=== PATIENT | male | born 1980 | race Hispanic/Latino ===

== ENCOUNTER 2016-11-20 21:26 | Emergency (ER) | payer MEDICAID ==
[2016-11-20 22:11] VITALS: BMI 43.2
[2016-11-20] MEDS ORDERED: Morphine 4 mg/ml ISec IVP STA ×2 (22:40→23:46)
[2016-11-20] MEDS ORDERED: Sodium Chloride 0.9% 1,000 ML IV SCH (22:45)
--- NOTE | 2016-11-20 22:49 | ED PDOC ---
Arrival/HPI - General Chief Complaint: Abdominal Pain Time Seen by Provider: 11/20/16 22:20 Historian: Patient - History of Present Illness Narrative History of Present Illness (Text): 11/20/16 22:47 Bill Doyle is a 36 year old male, with a history of sigmoidectomy in January 2016 for recurrent diverticulitis, presents to the emergency department complaining of abdominal pain and growing ventral hernia for past 2 weeks. States he came back from [place] yesterday. States that pain is worsened while lifting heavy objects. He was admitted to [facility] August 2016 for similar symptoms and was advised to followup with outpatient. States he could not be evaluated by due to insurance coverage issues. Denies any chest pain, shortness of breath, nausea, vomiting, diarrhea, constipation, melena, urinary symptoms or any other complaints at this time. Time/Duration: > week (2 weeks ) Symptom Onset: Gradual Symptom Course: Unchanged Severity Level: Mild, Moderate Past Medical History - Provider Review Nursing Documentation Reviewed: Yes - Infectious Disease Hx of Infectious Diseases: None - Tetanus Immunization Tetanus Immunization: Unknown - Cardiac Hx Cardiac Disorders: No - Pulmonary Hx Respiratory Disorders: No - Neurological Hx Neurological Disorder: No - HEENT Hx HEENT Disorder: No - Renal Hx Renal Disorder: No - Endocrine/Metabolic Hx Endocrine Disorders: No - Hematological/Oncological Hx Blood Disorders: No - Integumentary Hx Dermatological Disorder: No (TATTOOS) - Musculoskeletal/Rheumatological Hx Musculoskeletal Disorders: No Hx Falls: No - Gastrointestinal Hx Gastrointestinal Disorders: Yes Hx Diverticulitis: Yes Other/Comment: incisional abscess, sigmoid colon resection january 2016 - Genitourinary/Gynecological Hx Genitourinary Disorders: No - Psychiatric Hx Psychophysiologic Disorder: No Hx Substance Use: No (DENIES) - Past Surgical History Past Surgical History: No Previous - Surgical History Other/Comment: Sigmoid colon resection on 02/24/2016. incisional abscess multiple complications - Anesthesia Hx Anesthesia: Yes Hx Anesthesia Reactions: No Hx Malignant Hyperthermia: No - Suicidal Assessment Feels Threatened In Home Enviroment: No Family/Social History - Physician Review Nursing Documentation Reviewed: Yes Family/Social History: No Known Family HX Smoking Status: Heavy Smoker > 10 Cigarettes Daily Hx Alcohol Use: No (Socially) Hx Substance Use: No (DENIES) Hx Substance Use Treatment: Yes Allergies/Home Meds Allergies/Adverse Reactions: Allergies erythromycin base Allergy (Verified 09/07/16 20:41) RASH Penicillins Allergy (Verified 09/07/16 20:41) RASH venom-honey bee [bee venom (honey bee)] Allergy (Verified 09/07/16 20:41) ANAPHYLAXIS Review of Systems - Physician Review All systems were reviewed & negative as marked: Yes - Review of Systems Constitutional: Normal. absent: Fatigue, Fevers Respiratory: Normal. absent: SOB, Cough Cardiovascular: Normal. absent: Chest Pain Gastrointestinal: Abdominal Pain, Other (ventral hernia ) Genitourinary Male: Normal. absent: Dysuria, Frequency Neurological: Normal. absent: Headache, Dizziness Psychiatric: Normal Physical Exam Vital Signs Reviewed: Yes Vital Signs Temp Pulse Resp BP Pulse Ox 11/21/16 02:00 97.8 F 74 16 129/80 96 11/21/16 00:15 98.8 F 84 18 138/88 95 11/20/16 21:27 97.6 F 107 H 18 155/89 H 95 Temperature: Afebrile Blood Pressure: Normal Pulse: Tachycardic Respiratory Rate: Normal Appearance: Positive for: Well-Appearing, Non-Toxic, Comfortable Pain Distress: None Mental Status: Positive for: Alert and Oriented X 3 - Systems Exam Head: Present: Atraumatic, Normocephalic Pupils: Present: PERRL Conjunctiva: Present: Normal Respiratory/Chest: Present: Clear to Auscultation, Good Air Exchange. No: Respiratory Distress, Accessory Muscle Use Cardiovascular: Present: Regular Rate and Rhythm, Normal S1, S2. No: Murmurs Abdomen: Present: Normal Bowel Sounds, Hernias (large soft irreducible ventral hernia ). No: Tenderness, Distention, Peritoneal Signs Upper Extremity: Present: Normal Inspection. No: Cyanosis, Edema Lower Extremity: Present: Normal Inspection. No: Edema Neurological: Present: GCS=15, CN II-XII Intact, Speech Normal, Motor Func Grossly Intact, Normal Sensory Function Skin: Present: Warm, Dry, Normal Color. No: Rashes Psychiatric: Present: Alert, Oriented x 3, Normal Insight, Normal Concentration Medical Decision Making ED Course and Treatment: 11/21/16 00:46 Case discussed with hospitalist. Surgery resident evaluated the pt in the ED. chepe gill attending. 11/21/16 01:53 CT Abdomen and Pelvis results reviewed: FINDINGS: Lower thorax: The bilateral lung bases are clear. ABDOMEN: Liver: No acute findings. Gallbladder and bile ducts: The gallbladder is only minimally distended, without calcified stones. No significant intra- or extrahepatic biliary ductal dilation. Pancreas: A 9 mm focus of decreased attenuation is identified within the body of the pancreas, unchanged dating back to 03/27/2016. The pancreas otherwise enhances homogeneously. No ductal dilation. No discrete mass. Spleen: No acute findings. Adrenals: No acute findings. Kidneys and ureters: No acute findings. No hydronephrosis or renal calculi. No discrete solid mass. PELVIS: Bladder: The bladder is decompressed, limiting its evaluation. Reproductive: No acute findings. Appendix: The appendix is not definitively visualized, however no pericecal inflammatory changes identified to suggest the presence of acute appendicitis. ABDOMEN and PELVIS: Stomach and bowel: No obstruction. Mural thickening within multiple loops of small bowel within the left mid to upper abdomen, without surrounding inflammatory change to confirm an enteritis. Postoperative change within the sigmoid colon. Nonobstructing ventral hernia persists. Peritoneum: No significant fluid collection. No free air. Lymph nodes: No pathologically enlarged lymph nodes. Vasculature: Unremarkable. Bones: No acute fracture. IMPRESSION: Mural thickening within multiple loops of small bowel within the left mid to upper abdomen, without surrounding inflammation to confirm an enteritis. Additional nonacute findings, as detailed above. 11/21/16 02:[address] evaluated the patient. Patient states that pain has improved post treatment and wishes to be discharged home. States he will follow up with Dr. Drake outpatient within couple of days. Advised to present to emergency department for worsening symptoms. - Lab Interpretations Lab Results: 11/20/16 23:30 11/20/16 23:30 Lab Results 11/20/16 23:30: Sodium 141, Chloride 102, Potassium 4.0, Carbon Dioxide 29, Anion Gap 14, BUN 17, Creatinine 1.0, Est GFR ( Amer) > 60, Est GFR (Non- Af Amer) > 60, Random Glucose 93, Calcium 9.2, Total Bilirubin 0.5, AST 39, ALT 64 H, Alkaline Phosphatase 90, Total Protein 7.9, Albumin 4.1, Globulin 3.7, Albumin/Globulin Ratio 1.1 11/20/16 23:30: pO2 89 H, VBG pH 7.39, VBG pCO2 51.0, VBG HCO3 30.9 H, VBG Total CO2 32.5 H, VBG O2 Sat (Calc) 98.6 H, VBG Base Excess 4.7 H, VBG Potassium 3.9, Sodium 139.0, Chloride 109.0 H, Glucose 96, Lactate 1.1, FiO2 21.0, Venous Blood Potassium 3.9 11/20/16 23:30: WBC 7.4, RBC 4.61, Hgb 13.6 L, Hct 41.0 L, MCV 88.9, MCH 29.5, MCHC 33.2, RDW 13.0, Plt Count 271, MPV 9.0, Gran % 58.7, Lymph % (Auto) 31.6, Cottle % (Auto) 8.7 H, Eos % (Auto) 0.9 L, Baso % (Auto) 0.1, Gran # 4.33, Lymph # 2.3, Cottle # 0.6, Eos # 0.1, Baso # 0.01 - RAD Interpretation Radiology Orders: 11/20/16 23:13 ABD PELVIS PO & IV CONTRAST [CT] Stat - Medication Orders Current Medication Orders: Discontinued Medications Sodium Chloride (Sodium Chloride 0.9%) 1,000 mls @ 150 mls/hr IV .[facility]6H40M [facility] Last Admin: 11/20/16 23:45 Dose: 150 mls/hr Iohexol (Omnipaque 240 (50 Ml)) Confirm Administered Dose 50 ml .ROUTE .STK-MED ONE Stop: 11/20/16 23:35 Last Admin: 11/20/16 23:55 Dose: 50 ml Iohexol (Omnipaque 350 100 Ml) Confirm Administered Dose 350 mg .ROUTE .STK-MED ONE Stop: 11/21/16 00:46 Ketorolac Tromethamine (Toradol) 10 mg IVP STAT STA Stop: 11/21/16 00:24 Last Admin: 11/21/16 01:00 Dose: 10 mg Morphine Sulfate (Morphine) 8 mg IVP STAT STA Stop: 11/20/16 22:41 Last Admin: 11/20/16 23:20 Dose: 8 mg Re-Assess: HANNY Pain Assessment Document 11/21/16 00:20 KKL (Rec: 11/21/16 01:57 KKL [id number]) Pain Reassessment Is this a pain reassessment? Yes Sleep Is patient sleeping during reassessment? No Presence of Pain Presence of Pain Yes Pain Scale Used Pain Scale Used Numeric Location Pain Location Body Site Abdomen Morphine Sulfate (Morphine) 4 mg IVP STAT STA Stop: 11/20/16 23:47 Last Admin: 11/21/16 00:05 Dose: 4 mg Re-Assess: HANNY Pain Assessment Document 11/21/16 01:05 KKL (Rec: 11/21/16 01:58 KKL [id number]) Pain Reassessment Is this a pain reassessment? Yes Sleep Is patient sleeping during reassessment? No Presence of Pain Presence of Pain Yes Pain Scale Used Pain Scale Used Numeric Location Pain Location Body Site Abdomen Description Description Sharp Intensity of Pain at present 7 Acceptable Level of Pain 4 Pain Behavior Restlessness Morphine Sulfate (Morphine) 4 mg IVP STAT STA Stop: 11/21/16 02:03 Last Admin: 11/21/16 02:10 Dose: 4 mg - Scribe Statement The provider has reviewed the documentation as recorded by the Barb Ma Provider Attestation: All medical record entries made by the Barb were at my direction and personally dictated by me. I have reviewed the chart and agree that the record accurately reflects my personal performance of the history, physical exam, medical decision making, and the department course for this patient. I have also personally directed, reviewed, and agree with the discharge instructions and disposition. Disposition/Present on Arrival - Present on Arrival Any Indicators Present on Arrival: No History of DVT/PE: No History of Uncontrolled Diabetes: No Urinary Catheter: No History of Decub. Ulcer: No History Surgical Site Infection Following: None - Disposition Have Diagnosis and Disposition been Completed?: Yes Diagnosis: Ventral hernia Disposition: HOME/ ROUTINE Disposition Time: 02:06 Condition: STABLE Discharge Instructions (ExitCare): Ventral Hernia (ED) Additional Instructions: Please follow up with the surgeon: call tomorrow. Return to the ER for any worsening symptoms, fever, vomiting, severe pain, or for any other concerns. Referrals: [facility] Julian Saleem, [Primary Care Provider] - Follow up with primary Octavio Drake MD [Staff Provider] - Follow up with primary
[2016-11-20] MEDS ORDERED: Iohexol 240 (50 ml) ONE (23:34)
[2016-11-20 23:42] LABS: ADD MANUAL DIFF? NO
[2016-11-20 23:56] LABS: VENOUS BLOOD GAS BASE EXCESS 4.7 mmol/L (0.0-2.0); VENOUS BLOOD PH 7.39 (7.32-7.43)
[2016-11-20 23:58] LABS: ALB/GLOB RATIO 1.1 (1.1-1.8); ALKALINE PHOSPHATASE 90 U/L (38-133); ALT/SGPT 64 U/L (7-56); AST/SGOT 39 U/L (15-59); BILIRUBIN,TOTAL 0.5 mg/dL (0.2-1.3); BLOOD UREA NITROGEN 17 mg/dL (7-21); CALCIUM 9.2 mg/dL (8.4-10.5); CARBON DIOXIDE 29 mmol/L (21-33); CHLORIDE 102 mmol/L (98-107); GFR AFRICAN-AMERICAN > 60; GLUCOSE,RANDOM 93 mg/dL (70-110); SODIUM 141 mmol/L (132-148); TOTAL PROTEIN 7.9 g/dL (5.8-8.3)
[2016-11-21 00:24] LABS: BASO # 0.01 K/mm3 (0.0-2.0); BASO % 0.1 % (0.0-3.0); EOS # 0.1 (0.0-0.7); EOS % 0.9 % (1.5-5.0); GRAN # 4.33 (1.4-6.5); GRAN % 58.7 % (50.0-68.0); LYMPH # 2.3 (1.2-3.4); LYMPH % 31.6 % (22.0-35.0); MEAN CELL VOLUME 88.9 fL (80.0-105.0); MEAN CORPUSCULAR HEMOGLOBIN 29.5 pg (25.0-35.0); MEAN CORPUSCULAR HGB CONC 33.2 g/dl (31.0-37.0); MONO # 0.6 (0.1-0.6); MONO % 8.7 % (1.0-6.0); PLATELET COUNT 271 10^3/uL (120.0-450.0); WHITE BLOOD COUNT 7.4 10^3/ul (4.5-11.0)
[2016-11-21] MEDS ORDERED: Iohexol 350 MG/100 ML VIAL ONE (00:45)
--- NOTE | 2016-11-21 01:35 | CT ---
EXAM: CT Abdomen and Pelvis With Intravenous Contrast CLINICAL HISTORY: 36 years old, male; Pain; Abdominal pain; Generalized; Prior surgery; Surgery date: 6+ months; Additional info: Abd pain and ventral hernia TECHNIQUE: Axial computed tomography images of the abdomen and pelvis with intravenous contrast. This CT exam was performed using one or more of the following dose reduction techniques: automated exposure control, adjustment of the mA and/or kV according to patient size, and/or use of iterative reconstruction technique. Coronal and sagittal reformatted images were created and reviewed. CONTRAST: 96 mL of OMNI 350 administered intravenously. COMPARISON: CT - ABD PELVIS IV CONTRAST ONLY 09/07/2016 10:33:36 PM FINDINGS: Lower thorax: The bilateral lung bases are clear. ABDOMEN: Liver: No acute findings. Gallbladder and bile ducts: The gallbladder is only minimally distended, without calcified stones. No significant intra- or extrahepatic biliary ductal dilation. Pancreas: A 9 mm focus of decreased attenuation is identified within the body of the pancreas, unchanged dating back to 03/27/2016. The pancreas otherwise enhances homogeneously. No ductal dilation. No discrete mass. Spleen: No acute findings. Adrenals: No acute findings. Kidneys and ureters: No acute findings. No hydronephrosis or renal calculi. No discrete solid mass. PELVIS: Bladder: The bladder is decompressed, limiting its evaluation. Reproductive: No acute findings. Appendix: The appendix is not definitively visualized, however no pericecal inflammatory changes identified to suggest the presence of acute appendicitis. ABDOMEN and PELVIS: Stomach and bowel: No obstruction. Mural thickening within multiple loops of small bowel within the left mid to upper abdomen, without surrounding inflammatory change to confirm an enteritis. Postoperative change within the sigmoid colon. Nonobstructing ventral hernia persists. Peritoneum: No significant fluid collection. No free air. Lymph nodes: No pathologically enlarged lymph nodes. Vasculature: Unremarkable. Bones: No acute fracture. IMPRESSION: Mural thickening within multiple loops of small bowel within the left mid to upper abdomen, without surrounding inflammation to confirm an enteritis. Additional nonacute findings, as detailed above.
[2016-11-21] MEDS ORDERED: Morphine 4 mg/ml ISec IVP STA (02:02)
[2016-11-21 02:25] VITALS: BP 129/80; PULSE 74; RESP 16; TEMP 97.8; O2SAT 96
== END 2016-11-21 02:27 | disposition home or self-care (01) ==
LOC: ED 21:26 → UNDOADMOB 11-21 00:45 → ERH 11-21 00:45 → ED 11-21 02:27
DX: K43.9 Ventral hernia without obstruction or gangrene (principal); Z88.0 Allergy status to penicillin; F17.210 Nicotine dependence, cigarettes, uncomplicated
CPT/HCPCS: 74177; 80053; 82803; 85025; 96374; 96375; 96376; 99284; J1885; J2270; J7040; Q9966; Q9967

== ENCOUNTER 2016-12-03 20:59 | Emergency (ER) | payer MEDICAID ==
[2016-12-03 21:00] VITALS: BMI 43.2
[2016-12-03 21:15] VITALS: RESP 18; TEMP 98.6
--- NOTE | 2016-12-03 21:35 | ED PDOC ---
Arrival/HPI - General Chief Complaint: Abdominal Pain Time Seen by Provider: 12/03/16 21:26 Historian: Patient - History of Present Illness Narrative History of Present Illness (Text): 12/03/16 21:34 Bill Doyle is a 35 year old male, whose past medical history includes recurrent diverticulitis, s/p sigmoid colon resection with anastomosis, diabetes , hyperlipidemia, and appendectomy, who presents to the ED complaining of a worsening ventral hernia for the past few weeks. Patient also complaining of associated pain to the area. Patient denies any fever, chills, chest pain, shortness of breath, nausea, vomiting, diarrhea, urinary symptoms, back pain, neck pain, headache, dizziness, or any other complaints. Time/Duration: Other (Few weeks) Symptom Onset: Gradual Symptom Course: Unchanged Activities at Onset: Light Context: Home Past Medical History - Provider Review Nursing Documentation Reviewed: Yes - Infectious Disease Hx of Infectious Diseases: None - Tetanus Immunization Tetanus Immunization: Unknown - Cardiac Hx Cardiac Disorders: No - Pulmonary Hx Respiratory Disorders: No - Neurological Hx Neurological Disorder: No - HEENT Hx HEENT Disorder: No - Renal Hx Renal Disorder: No - Endocrine/Metabolic Hx Endocrine Disorders: No - Hematological/Oncological Hx Blood Disorders: No - Integumentary Hx Dermatological Disorder: No - Musculoskeletal/Rheumatological Hx Musculoskeletal Disorders: No Hx Falls: No - Gastrointestinal Hx Gastrointestinal Disorders: Yes Hx Diverticulitis: Yes Other/Comment: incisional abscess, sigmoid colon resection january 2016 - Genitourinary/Gynecological Hx Genitourinary Disorders: No - Psychiatric Hx Psychophysiologic Disorder: No Hx Substance Use: No (DENIES) - Past Surgical History Past Surgical History: No Previous - Surgical History Other/Comment: Sigmoid colon resection on 02/24/2016. incisional abscess multiple complications - Anesthesia Hx Anesthesia: Yes - Suicidal Assessment Feels Threatened In Home Enviroment: No Family/Social History - Physician Review Nursing Documentation Reviewed: Yes Family/Social History: No Known Family HX Smoking Status: Heavy Smoker > 10 Cigarettes Daily Hx Alcohol Use: No (Socially) Hx Substance Use: No (DENIES) Hx Substance Use Treatment: Yes Allergies/Home Meds Allergies/Adverse Reactions: Allergies erythromycin base Allergy (Verified 12/05/16 12:12) RASH Penicillins Allergy (Verified 12/05/16 12:12) RASH venom-honey bee [bee venom (honey bee)] Allergy (Verified 12/05/16 12:12) ANAPHYLAXIS Home Medications: Home Meds Medication Instructions Recorded Confirmed No Known Home Med 12/03/16 12/05/16 Review of Systems - Physician Review All systems were reviewed & negative as marked: Yes - Review of Systems Constitutional: Normal. absent: Fevers Eyes: Normal ENT: Normal Respiratory: Normal. absent: SOB, Cough Cardiovascular: Normal. absent: Chest Pain Gastrointestinal: Abdominal Pain, Nausea, Vomiting, Other (+worsening hernia) Genitourinary Male: Normal. absent: Dysuria, Frequency, Hematuria, Urinary Output Changes Musculoskeletal: Normal. absent: Back Pain, Neck Pain Skin: Normal. absent: Rash Neurological: Normal. absent: Headache, Dizziness Endocrine: Normal Hemo/Lymphatic: Normal Psychiatric: Normal Physical Exam Vital Signs Reviewed: Yes Vital Signs Temp Pulse Resp BP Pulse Ox 12/04/16 02:40 98 H 18 116/76 95 12/03/16 21:13 98.6 F 104 H 18 125/76 96 Temperature: Afebrile Blood Pressure: Normal Pulse: Regular Respiratory Rate: Normal Appearance: Positive for: Well-Appearing, Non-Toxic, Comfortable Pain Distress: None Mental Status: Positive for: Alert and Oriented X 3 - Systems Exam Head: Present: Atraumatic, Normocephalic Pupils: Present: PERRL Extroacular Muscles: Present: EOMI Conjunctiva: Present: Normal Mouth: Present: Moist Mucous Membranes Neck: Present: Normal Range of Motion Respiratory/Chest: Present: Clear to Auscultation, Good Air Exchange. No: Respiratory Distress, Accessory Muscle Use Cardiovascular: Present: Regular Rate and Rhythm, Normal S1, S2. No: Murmurs Abdomen: Present: Normal Bowel Sounds, Hernias (Large ventral hernia). No: Tenderness, Distention, Peritoneal Signs Back: Present: Normal Inspection Upper Extremity: Present: Normal Inspection. No: Cyanosis, Edema Lower Extremity: Present: Normal Inspection. No: Edema Neurological: Present: GCS=15, CN II-XII Intact, Speech Normal Skin: Present: Warm, Dry, Normal Color. No: Rashes Psychiatric: Present: Alert, Oriented x 3, Normal Insight, Normal Concentration Medical Decision Making ED Course and Treatment: 12/03/16 21:34 Impression: 36 year old male complaining of worsening ventral hernia with associated pain. Plan: -- CT Abdomen and Pelvis w/o contrast -- Labs, lipase -- Urinalysis -- IV fluids -- Zofran -- Dilaudid -- Reassess and disposition Prior Visits: Notes and results from previous visits were reviewed. On 11/20/2016, pt was seen in the Emergency department for abdominal pain and growing ventral hernia. Pt was d/c home. Progress Notes: 12/03/16 23:50 Reviewed radiology, CT Abdomen and Pelvis shows: Diastases recti. Fat and unobstructed bowel loops protrude through the defect in the abdominal wall. 12/04/16 00:07 Case discussed with surgical supply assistant head correction officer, who is aware and agrees with plan. 12/04/16 01:[address] Sherlyn Lara, who is aware and agrees with plan. States she will be unavailable tomorrow and recommends pt return to the Emergency department for evaluation on Thursday11/05/16. Discussed results and plan with pt, who is aware and verbalizes understanding. - Lab Interpretations Lab Results: 12/03/16 21:46 12/03/16 21:46 Lab Results 12/03/16 23:56: Urine Color Yellow, Urine Appearance Sl cloudy, Urine pH 6.0, Ur Specific [place] >= 1.030, Urine Protein 30 H, Urine Glucose (UA) Negative, Urine Ketones Negative, Urine Blood Negative, Urine Nitrate Negative, Urine Bilirubin Small H, Urine Urobilinogen 1.0 H, Ur Leukocyte Esterase Negative, Urine RBC 0 - 2, Urine WBC 2 - 5, Ur Epithelial Cells 0 - 2, Calcium Oxalate Crystal Rare, Urine Bacteria Rare 12/03/16 21:46: Sodium 139, Potassium 4.0, Chloride 100, Carbon Dioxide 30, Anion Gap 13, BUN 15, Creatinine 0.9, Est GFR ( Amer) > 60, Est GFR (Non- Af Amer) > 60, Random Glucose 88, Calcium 9.2, Total Bilirubin 0.8, AST 47, ALT 87 H, Alkaline Phosphatase 76, Total Protein 8.6 H, Albumin 4.5, Globulin 4.1, Albumin/Globulin Ratio 1.1, Lipase 45 12/03/16 21:46: PT 10.6, INR 0.98, APTT 27.2 12/03/16 21:46: WBC 7.4, RBC 4.90, Hgb 14.8, Hct 44.1, MCV 90.0, MCH 30.2, MCHC 33.6, RDW 13.2, Plt Count 301, MPV 9.1, Gran % 64.5, Lymph % (Auto) 26.1, Simpson % (Auto) 8.3 H, Eos % (Auto) 1.0 L, Baso % (Auto) 0.1, Gran # 4.74, Lymph # 1.9 , Simpson # 0.6, Eos # 0.1, Baso # 0.01 I have reviewed the lab results: Yes - RAD Interpretation Narrative RAD Interpretations (Text): CT Abdomen and Pelvis shows: Lower thorax: No acute findings. ABDOMEN: Liver: Fatty infiltration of the liver. Gallbladder and bile ducts: Unremarkable. No calcified stones. No ductal dilation. Pancreas: Unremarkable. No ductal dilation. Spleen: Unremarkable. No splenomegaly. Adrenals: Unremarkable. No mass. Kidneys and ureters: Left renal cysts. No obstructing stones. No hydronephrosis. Stomach and bowel: Diastases recti. Fat and unobstructed bowel loops protrude through the defect in the abdominal wall. Diverticulosis in the right colon. Postop changes in the sigmoid colon. Appendix: No findings to suggest acute appendicitis. PELVIS: Bladder: Unremarkable. No stones. Reproductive: Unremarkable as visualized. ABDOMEN and PELVIS: Intraperitoneal space: Unremarkable. No free air. No significant fluid collection. Bones/joints: No acute fracture. No dislocation. Soft tissues: See above. Vasculature: Unremarkable. No abdominal aortic aneurysm. Lymph nodes: Unremarkable. No enlarged lymph nodes. IMPRESSION: Diastases recti. Fat and unobstructed bowel loops protrude through the defect in the abdominal wall. Radiology Orders: 12/03/16 21:38 ABD & PELVIS W/O PO OR IV CONT [CT] Stat Plastic Press Molder: Radiologist - Medication Orders Current Medication Orders: Discontinued Medications Hydromorphone HCl (Dilaudid) 2 mg IVP STAT STA Stop: 12/03/16 21:39 Last Admin: 12/03/16 22:03 Dose: 2 mg Hydromorphone HCl (Dilaudid) 2 mg IVP STAT STA Stop: 12/03/16 22:34 Last Admin: 12/03/16 22:47 Dose: 2 mg Hydromorphone HCl (Dilaudid) 2 mg IVP STAT STA Stop: 12/04/16 00:07 Last Admin: 12/04/16 00:20 Dose: 2 mg Hydromorphone HCl (Dilaudid) 2 mg IVP STAT STA Stop: 12/04/16 01:58 Last Admin: 12/04/16 02:33 Dose: 2 mg Sodium Chloride (Sodium Chloride 0.9%) 1,000 mls @ 100 mls/hr IV .Q10H STA Stop: 12/04/16 07:37 Last Admin: 12/03/16 22:03 Dose: 100 mls/hr Ondansetron HCl (Zofran Inj) 4 mg IVP STAT STA Stop: 12/03/16 21:39 Last Admin: 12/03/16 22:02 Dose: 4 mg - Scribe Statement The provider has reviewed the documentation as recorded by the Scribpatience Givens All medical record entries made by the Ramiroibpatience were at my direction and personally dictated by me. I have reviewed the chart and agree that the record accurately reflects my personal performance of the history, physical exam, medical decision making, and the department course for this patient. I have also personally directed, reviewed, and agree with the discharge instructions and disposition. Disposition/Present on Arrival - Present on Arrival Any Indicators Present on Arrival: No History of DVT/PE: No History of Uncontrolled Diabetes: No Urinary Catheter: No History of Decub. Ulcer: No History Surgical Site Infection Following: None - Disposition Have Diagnosis and Disposition been Completed?: Yes Diagnosis: Abdominal hernia Disposition: HOME/ ROUTINE Disposition Time: 01:40 Condition: GOOD Discharge Instructions (ExitCare): Ventral Hernia (ED) Additional Instructions: follow up with dr lara or return to ed
[2016-12-03] MEDS ORDERED: Sodium Chloride 0.9% 1,000 ML IV STA (21:38)
[2016-12-03] MEDS ORDERED: HYDROmorphone 2 mg/ml ISec IVP STA ×2 (21:38→22:33)
[2016-12-03 22:12] LABS: ADD MANUAL DIFF? NO
[2016-12-03 22:20] LABS: BASO # 0.01 K/mm3 (0.0-2.0); BASO % 0.1 % (0.0-3.0); EOS # 0.1 (0.0-0.7); GRAN # 4.74 (1.4-6.5); GRAN % 64.5 % (50.0-68.0); HEMATOCRIT 44.1 % (42.0-52.0); LYMPH # 1.9 (1.2-3.4); LYMPH % 26.1 % (22.0-35.0); MEAN CORPUSCULAR HEMOGLOBIN 30.2 pg (25.0-35.0); MEAN CORPUSCULAR HGB CONC 33.6 g/dl (31.0-37.0); MEAN PLATELET VOLUME 9.1 fl (7.0-11.0); MONO # 0.6 (0.1-0.6); MONO % 8.3 % (1.0-6.0); PLATELET COUNT 301 10^3/uL (120.0-450.0); RED CELL DISTRIBUTION WIDTH 13.2 % (11.5-14.5); WHITE BLOOD COUNT 7.4 10^3/ul (4.5-11.0)
[2016-12-03 22:25] LABS: ALB/GLOB RATIO 1.1 (1.1-1.8); ALKALINE PHOSPHATASE 76 U/L (38-133); ALT/SGPT 87 U/L (7-56); AST/SGOT 47 U/L (15-59); BILIRUBIN,TOTAL 0.8 mg/dL (0.2-1.3); BLOOD UREA NITROGEN 15 mg/dL (7-21); CALCIUM 9.2 mg/dL (8.4-10.5); CARBON DIOXIDE 30 mmol/L (21-33); CHLORIDE 100 mmol/L (98-107); GFR AFRICAN-AMERICAN > 60; GLUCOSE,RANDOM 88 mg/dL (70-110); LIPASE 45 U/L (23-300); SODIUM 139 mmol/L (132-148); TOTAL PROTEIN 8.6 g/dL (5.8-8.3)
[2016-12-03 22:29] LABS: INR 0.98 (0.93-1.08); PARTIAL THROMBOPLASTIN TIME 27.2 Seconds (23.7-30.8)
[2016-12-04] MEDS ORDERED: HYDROmorphone 2 mg/ml ISec IVP STA ×2 (00:06→01:57)
[2016-12-04 00:19] LABS: URINE BILIRUBIN SMALL (NEGATIVE); URINE BLOOD NEGATIVE (NEGATIVE); URINE GLUCOSE (UA) NEGATIVE (NEGATIVE); URINE KETONE NEGATIVE (NEGATIVE); URINE LEUKOCYTE ESTERASE NEGATIVE Leu/uL (NEGATIVE); URINE PROTEIN 30 mg/dL (<30 mg/dL)
[2016-12-04 00:23] LABS: URINE APPEARANCE SL CLOUDY (CLEAR); URINE COLOR YELLOW (YELLOW)
[2016-12-04 00:32] LABS: URINE BACTERIA RARE (NEG); URINE EPITHELIAL CELLS 0 - 2 /hpf (0-5); URINE RBC 0 - 2 /hpf (0-2)
[2016-12-04 00:33] LABS: URINE CALCIUM OXALATE CRYSTALS RARE /hpf
[2016-12-04 02:41] VITALS: BP 116/76; PULSE 98; O2SAT 95
--- NOTE | 2016-12-04 09:01 | CT ---
PROCEDURE: CT Abdomen and Pelvis without intravenous contrast HISTORY: abd pain COMPARISON: 11/21/2016 TECHNIQUE: Without contrast.. Contrast Dose: 0 Radiation dose: Total exam DLP = 2804.55 mGy-cm. This CT exam was performed using one or more of the following dose reduction techniques: Automated exposure control, adjustment of the mA and/or kV according to patient size, and/or use of iterative reconstruction technique. FINDINGS: LOWER THORAX: Unremarkable. LIVER: Normal size and contour. Mildly diminished attenuation diffusely consistent with fatty infiltration. No mass. No biliary dilatation. GALLBLADDER AND BILE DUCTS: Unremarkable. PANCREAS: Significant for 1.2 cm homogeneously fat attenuation mass in the pancreatic body consistent with a small pancreatic lipoma. Unchanged since 02/13/2015. No other pancreatic mass. No pancreatic ductal dilatation or peripancreatic fluid. SPLEEN: Unremarkable. ADRENALS: 1.3 cm left adrenal mass common nonspecific. Unchanged. Likely adrenal adenoma. Unremarkable right adrenal gland. KIDNEYS AND URETERS: Unremarkable. No hydronephrosis. No solid mass. VASCULATURE: Unremarkable. No aortic aneurysm. BOWEL: No bowel obstruction. Postoperative changes of descending and sigmoid colon with sutural anastomoses identified. APPENDIX: Not identified. No secondary findings to suggest acute appendicitis. PERITONEUM: Diastases recti. Small right parasagittal ventral hernia containing mesenteric fat, supraumbilical. LYMPH NODES: Unremarkable. No enlarged lymph nodes. BLADDER: Unremarkable. REPRODUCTIVE: As above. Unremarkable prostate BONES: No acute fracture. OTHER FINDINGS: None. IMPRESSION: No acute abnormality. Diastasis recti and small ventral hernia containing mesenteric fat. No bowel obstruction. Additional minor findings as above. Preliminary interpretation of this examination was reported by [facility] [facility] at 11:34 p.m. on 12/03/2016. There is concurrence of this report with the preliminary interpretation.
== END 2016-12-04 02:40 | disposition home or self-care (01) ==
LOC: ED 20:59
DX: K46.9 Unspecified abdominal hernia without obstruction or gangrene (principal); K57.92 Diverticulitis of intestine, part unspecified, without perforation or abscess without bleeding; E11.9 Type 2 diabetes mellitus without complications; E78.5 Hyperlipidemia, unspecified; Z98.890 Other specified postprocedural states
CPT/HCPCS: 74176; 80053; 81001; 83690; 85025; 85610; 85730; 96374; 96375; 96376; 99283; J1170; J2405; J7040

== ENCOUNTER 2016-12-05 12:01 | Emergency (ER) | payer MEDICAID ==
[2016-12-05 12:12] VITALS: BMI 44.6
[2016-12-05 12:15] VITALS: TEMP 98.1; O2SAT 96
--- NOTE | 2016-12-05 12:59 | ED PDOC ---
Arrival/HPI - General Chief Complaint: Abdominal Pain Time Seen by Provider: 12/05/16 12:29 Historian: Patient - History of Present Illness Narrative History of Present Illness (Text): 12/05/16 12:58 Patient is a 36 year old male presenting to the emergency department with abdominal hernia. Patient states he was seen in the ER and was told to return to the ER today. Patient also reports nausea and vomiting for the past week. He reports last bowel movement last night. States pain is persistent but not worse and no change in character. PMD: Dr. Paul Petersen ([facility]) 12/05/16 20:54 Symptom Onset: Gradual Symptom Course: Unchanged Modifying Factors (Text): None Past Medical History - Provider Review Nursing Documentation Reviewed: Yes - Travel History If Yes, travel location?: [place] - Infectious Disease Hx of Infectious Diseases: None - Tetanus Immunization Tetanus Immunization: Unknown - Cardiac Hx Cardiac Disorders: No - Pulmonary Hx Respiratory Disorders: No - Neurological Hx Neurological Disorder: No - HEENT Hx HEENT Disorder: No - Renal Hx Renal Disorder: No - Endocrine/Metabolic Hx Endocrine Disorders: No - Hematological/Oncological Hx Blood Disorders: No - Integumentary Hx Dermatological Disorder: No - Musculoskeletal/Rheumatological Hx Musculoskeletal Disorders: No Hx Falls: No - Gastrointestinal Hx Gastrointestinal Disorders: Yes Hx Diverticulitis: Yes Other/Comment: incisional abscess, sigmoid colon resection january 2016 - Genitourinary/Gynecological Hx Genitourinary Disorders: No - Psychiatric Hx Psychophysiologic Disorder: No Hx Substance Use: No (DENIES) - Past Surgical History Past Surgical History: No Previous - Surgical History Hx Appendectomy: Yes Other/Comment: Sigmoid colon resection on 02/24/2016. incisional abscess multiple complications - Anesthesia Hx Anesthesia: Yes - Suicidal Assessment Feels Threatened In Home Enviroment: No Family/Social History - Physician Review Nursing Documentation Reviewed: Yes Family/Social History: Unknown Family HX Smoking Status: Heavy Smoker > 10 Cigarettes Daily Hx Alcohol Use: No (Socially) Hx Substance Use: No (DENIES) Hx Substance Use Treatment: Yes Allergies/Home Meds Allergies/Adverse Reactions: Allergies erythromycin base Allergy (Verified 12/05/16 12:12) RASH Penicillins Allergy (Verified 12/05/16 12:12) RASH venom-honey bee [bee venom (honey bee)] Allergy (Verified 12/05/16 12:12) ANAPHYLAXIS Home Medications: Home Meds Medication Instructions Recorded Confirmed No Known Home Med 12/03/16 12/05/16 Review of Systems - Review of Systems Constitutional: absent: Fevers Eyes: absent: Vision Changes ENT: absent: Hearing Changes Respiratory: absent: SOB, Cough Cardiovascular: absent: Chest Pain, Palpitations Gastrointestinal: Nausea, Vomiting, Other (Hernia) Genitourinary Male: absent: Dysuria, Hematuria Musculoskeletal: absent: Back Pain Skin: absent: Rash Neurological: absent: Headache, Dizziness Endocrine: absent: Diaphoresis Psychiatric: absent: Depression Physical Exam - Physical Exam Narrative Physical Exam (Text): Head: Atraumatic. Normocephalic. Eyes: PERRL. EOMI. Conjunctivae are not pale. ENT: Mucous membranes are moist and intact. Oropharynx is clear and symmetric. Neck: Supple. Full ROM. No JVD. No lymphadenopathy. Cardiovascular: Regular rate. Regular rhythm. No murmurs, rubs, or gallops. Pulmonary/Chest: No evidence of respiratory distress. Clear to auscultation bilaterally. No wheezing, rales or rhonchi. Abdominal: Ventral wall hernia which is reducible. Midline abdominal scar. Mild tenderness. No rebound, guarding, or rigidity. No organomegaly. Good bowel sounds. Normoactive bowel sounds. Back: No CVA tenderness. Extremities: No edema. No cyanosis. No clubbing. Full range of motion in all extremities. No calf tenderness. Skin: Skin is warm and dry. No petechiae. No purpura. Neurological: Alert, awake, and oriented to person, place, time, and situation. Normal speech. Motor and sensory exam intact. Psychiatric: Good eye contact. Normal interaction, affect, and behavior. 12/05/16 20:51 Vital Signs Reviewed: Yes Vital Signs Temp Pulse Resp BP Pulse Ox 12/05/16 15:39 97 H 18 138/74 96 12/05/16 12:12 98.1 F 106 H 16 140/76 96 Temperature: Afebrile Blood Pressure: Normal Pulse: Tachycardic Respiratory Rate: Normal Appearance: Positive for: Well-Appearing, Non-Toxic, Uncomfortable Pain Distress: Mild Mental Status: Positive for: Alert and Oriented X 3 Medical Decision Making ED Course and Treatment: Patient denies any nausea or vomiting. He moved his bowels without difficulty today. Patient denies any chest pain or shortness of breath. He states that he was instructed to return to ER today for evaluation by Dr. Lara. Plan: -- Surgical consult -- Reassess and disposition Prior Visits: Notes and results from previous visits were reviewed. Patient last seen in ED on 12/03/16 for abdominal hernia and discharged home. CT Abdomen/Pelvis on 12/03/16 IMPRESSION: Diastases recti. Fat and unobstructed bowel loops protrude through the defect in the abdominal wall. Progress Notes: 12/05/16 12:59 Case discussed with surgical coordinator who states he will evaluate patient. 12/05/16 14:22 vice president of procurement states he spoke with attending Dr. Lara who states to discharge patient and instruct patient to come back to the ER on Thursday to be admitted for surgery. Patient re-examined, hernia is soft and reducible. He has pain on palpation but states it is not worse than what it has been for past several weeks. He is requesting dose of pain medication, IV pain medication ordered. He has a prescription for pain medication from previous visit. Based on no change in pain since last CT, tolerating PO, moving bowels without difficulty, and after evaluation by surgery, will discharge with follow-up as instructed. Patient understands instructions to return immediately to ER for any worsening or change in symptoms. - Lab Interpretations Lab Results: 12/05/16 13:45 12/05/16 13:45 Lab Results 12/05/16 13:45: Sodium 139, Potassium 4.5, Chloride 99, Carbon Dioxide 31, Anion Gap 14, BUN 14, Creatinine 0.8, Est GFR ( Amer) > 60, Est GFR (Non- Af Amer) > 60, Random Glucose 93, Calcium 9.8, Total Bilirubin 0.7, AST 38, ALT 87 H, Alkaline Phosphatase 71, Total Protein 8.5 H, Albumin 4.6, Globulin 3.9, Albumin/Globulin Ratio 1.2 12/05/16 13:45: PT 10.7, INR 0.99, APTT 27.2 12/05/16 13:45: WBC 6.6, RBC 4.99, Hgb 15.2, Hct 44.6, MCV 89.4, MCH 30.5, MCHC 34.1, RDW 13.1, Plt Count 272, MPV 8.7, Gran % 68.7 H, Lymph % (Auto) 24.7, [place] % (Auto) 6.1 H, Eos % (Auto) 0.5 L, Baso % (Auto) 0.0, Gran # 4.50, Lymph # 1.6, [place] # 0.4, Eos # 0.0, Baso # 0.00 I have reviewed the lab results: Yes - Medication Orders Current Medication Orders: Discontinued Medications Hydromorphone HCl (Dilaudid) 2 mg IVP STAT STA Stop: 12/05/16 15:43 Last Admin: 12/05/16 15:55 Dose: 2 mg - Scribe Statement The provider has reviewed the documentation as recorded by the Barb Santos Provider Ramiroibe Attestation: All medical record entries made by the Ramiroibpatience were at my direction and personally dictated by me. I have reviewed the chart and agree that the record accurately reflects my personal performance of the history, physical exam, medical decision making, and the department course for this patient. I have also personally directed, reviewed, and agree with the discharge instructions and disposition. Disposition/Present on Arrival - Present on Arrival Any Indicators Present on Arrival: No History of DVT/PE: No History of Uncontrolled Diabetes: No Urinary Catheter: No History of Decub. Ulcer: No History Surgical Site Infection Following: None - Disposition Have Diagnosis and Disposition been Completed?: Yes Diagnosis: Abdominal wall hernia Disposition: HOME/ ROUTINE Disposition Time: 14:22 Patient Plan: Discharge Condition: GOOD Discharge Instructions (ExitCare): Ventral Hernia (ED) Additional Instructions: Follow-up as per instructions of your surgeon. For any return of worsening of pain, any fever, any nausea or vomiting, any bloody urine or stool, any redness or swelling to the abdomen, any mass that becomes more firm or that you cannot reduce, get rechecked. Take your currently prescribed pain medication as directed. Referrals: Areli Lara MD [Staff Provider] - Follow up with primary
[2016-12-05 14:01] LABS: ADD MANUAL DIFF? NO
[2016-12-05 14:02] LABS: EOS % 0.5 % (1.5-5.0); GRAN % 68.7 % (50.0-68.0); HEMATOCRIT 44.6 % (42.0-52.0); LYMPH # 1.6 (1.2-3.4); LYMPH % 24.7 % (22.0-35.0); MEAN CELL VOLUME 89.4 fL (80.0-105.0); MEAN CORPUSCULAR HEMOGLOBIN 30.5 pg (25.0-35.0); MEAN CORPUSCULAR HGB CONC 34.1 g/dl (31.0-37.0); MEAN PLATELET VOLUME 8.7 fl (7.0-11.0); MONO # 0.4 (0.1-0.6); MONO % 6.1 % (1.0-6.0); PLATELET COUNT 272 10^3/uL (120.0-450.0); RED CELL DISTRIBUTION WIDTH 13.1 % (11.5-14.5); WHITE BLOOD COUNT 6.6 10^3/ul (4.5-11.0)
[2016-12-05 14:12] LABS: ALB/GLOB RATIO 1.2 (1.1-1.8); ALKALINE PHOSPHATASE 71 U/L (38-133); ALT/SGPT 87 U/L (7-56); AST/SGOT 38 U/L (15-59); BILIRUBIN,TOTAL 0.7 mg/dL (0.2-1.3); BLOOD UREA NITROGEN 14 mg/dL (7-21); CALCIUM 9.8 mg/dL (8.4-10.5); CARBON DIOXIDE 31 mmol/L (21-33); CHLORIDE 99 mmol/L (98-107); GFR AFRICAN-AMERICAN > 60; GLUCOSE,RANDOM 93 mg/dL (70-110); POTASSIUM 4.5 mmol/L (3.6-5.0); SODIUM 139 mmol/L (132-148); TOTAL PROTEIN 8.5 g/dL (5.8-8.3)
[2016-12-05 14:13] LABS: INR 0.99 (0.93-1.08); PARTIAL THROMBOPLASTIN TIME 27.2 Seconds (23.7-30.8)
--- NOTE | 2016-12-05 14:54 | CP.PCM.CON ---
History of Present Illness - History of Present Illness History of Present Illness: HPI: Patient is a 36yo male with history of diverticulitis s/p sigmoid colon resection with anastamosis approx 1 yr ago that presented c/o abdominal pain. Patient reported that over the last 8 months his abdomen has become more distended due to a hernia-like protrusion and within the last week has been having mild nausea and vomiting. He reported mild tenderness, normal bowel/ bladder habits and good appetite. He stated that he was seen in the ED on Thursday and told to come in later in the week for evaluation for possible surgical intervention. Denies chest pain, palpitations, SOB, bowel/bladder changes, fever, chills, cough, 12 point ROS as per note above, otherwise negative PMHx: diverticulitis, hyperlipidemia PSHx: colon resection (~1yr ago), appendectomy Allergies: erythromycin, penicillin Family Hx: Mother: DM; Father: denies Social Hx: Tobacco use ~1 1/2ppd for over 15yrs; denies alcohol and illicit drugs Past Patient History - Infectious Disease Hx of Infectious Diseases: None - Tetanus Immunizations Tetanus Immunization: Unknown - Past Medical History & Family History Past Medical History?: Yes - Past Social History Smoking Status: Heavy Smoker > 10 Cigarettes Daily - CARDIAC Hx Cardiac Disorders: No - PULMONARY Hx Respiratory Disorders: No - NEUROLOGICAL Hx Neurological Disorder: No - HEENT Hx HEENT Problems: No - RENAL Hx Chronic Kidney Disease: No - ENDOCRINE/METABOLIC Hx Endocrine Disorders: No - HEMATOLOGICAL/ONCOLOGICAL Hx Blood Disorders: No - INTEGUMENTARY Hx Dermatological Problems: No - MUSCULOSKELETAL/RHEUMATOLOGICAL Hx Musculoskeletal Disorders: No Hx Falls: No - GASTROINTESTINAL Hx Gastrointestinal Disorders: Yes Hx Diverticulitis: Yes Other/Comment: incisional abscess, sigmoid colon resection january 2016 - GENITOURINARY/GYNECOLOGICAL Hx Genitourinary Disorders: No - PSYCHIATRIC Hx Psychophysiologic Disorder: No Hx Substance Use: No (DENIES) - SURGICAL HISTORY Hx Appendectomy: Yes Other/Comment: Sigmoid colon resection on 02/24/2016. incisional abscess multiple complications - ANESTHESIA Hx Anesthesia: Yes Meds Allergies/Adverse Reactions: Allergies Allergy/AdvReac Type Severity Reaction Status Date / Time erythromycin base Allergy RASH Verified 12/05/16 12:12 Penicillins Allergy RASH Verified 12/05/16 12:12 venom-honey bee Allergy ANAPHYLAXIS Verified 12/05/16 12:12 [bee venom (honey bee)] Physical Exam - Constitutional Appears: Non-toxic, No Acute Distress - Head Exam Head Exam: ATRAUMATIC, NORMAL INSPECTION, NORMOCEPHALIC - Eye Exam Eye Exam: EOMI, PERRL - ENT Exam ENT Exam: Mucous Membranes Moist - Neck Exam Neck exam: Positive for: Normal Inspection - Respiratory Exam Respiratory Exam: Clear to Auscultation Bilateral. absent: Rales, Rhonchi, Wheezes - Cardiovascular Exam Cardiovascular Exam: RRR, +S1, +S2. absent: Gallop, JVD, Rubs - GI/Abdominal Exam GI & Abdominal Exam: Distended, Hernia, Soft, Tenderness. absent: Firm, Guarding, Rebound Additional comments: ventral abdominal wall protrusion; reducible; mild tenderness on palpation - Neurological Exam Neurological exam: Alert, CN II-XII Intact, Normal Gait, Oriented x3 - Psychiatric Exam Psychiatric exam: Normal Affect, Normal Mood - Skin Skin Exam: Dry, Intact, Normal Color, Warm Results - Vital Signs Recent Vital Signs: Last Vital Signs Temp 98.1 F 12/05/16 12:12 Pulse 106 H 12/05/16 12:12 Resp 16 12/05/16 12:12 BP 140/76 12/05/16 12:12 Pulse Ox 96 12/05/16 12:12 - Labs Result Diagrams: 12/05/16 13:45 12/05/16 13:45 Labs: Laboratory Results - last 24 hr 12/05/16 12/05/16 12/05/16 13:45 13:45 13:45 WBC 6.6 RBC 4.99 Hgb 15.2 Hct 44.6 MCV 89.4 MCH 30.5 MCHC 34.1 RDW 13.1 Plt Count 272 MPV 8.7 Gran % 68.7 H Lymph % (Auto) 24.7 [place] % (Auto) 6.1 H Eos % (Auto) 0.5 L Baso % (Auto) 0.0 Gran # 4.50 Lymph # 1.6 [place] # 0.4 Eos # 0.0 Baso # 0.00 PT 10.7 INR 0.99 APTT 27.2 Sodium 139 Potassium 4.5 Chloride 99 Carbon Dioxide 31 Anion Gap 14 BUN 14 Creatinine 0.8 Est GFR ( Amer) > 60 Est GFR (Non-Af Amer) > 60 Random Glucose 93 Calcium 9.8 Total Bilirubin 0.7 AST 38 ALT 87 H Alkaline Phosphatase 71 Total Protein 8.5 H Albumin 4.6 Globulin 3.9 Albumin/Globulin Ratio 1.2 Assessment & Plan - Assessment and Plan (Free Text) Plan: 36yo male with history of diverticulitis presents c/o abdominal pain 2/2 diastasis recti 1. Diastasis recti -Case discussed with attending, Dr. Lara who instructed for patient to return on Thursday, December 09 for admission for possible surgical intervention on Thursday. -Discussed plan with patient and he is agreeable to return on Thursday. -CT abd/pelvis reviewed -Labs reviewed Case discussed with attending, Dr. Lara - Date & Time Date: 12/05/16 Time: 14:55
[2016-12-05 15:39] VITALS: BP 138/74; PULSE 97; RESP 18
[2016-12-05] MEDS ORDERED: HYDROmorphone 2 mg/ml ISec IVP STA (15:42)
== END 2016-12-05 16:17 | disposition home or self-care (01) ==
LOC: ED 12:01
DX: K43.9 Ventral hernia without obstruction or gangrene (principal); E78.5 Hyperlipidemia, unspecified; Z72.0 Tobacco use
CPT/HCPCS: 80053; 85025; 85610; 85730; 96374; 99283; J1170

== ENCOUNTER 2016-12-09 10:21 | Inpatient (IN) | payer MEDICAID ==
[2016-12-09 10:41] VITALS: BMI 45.3
--- NOTE | 2016-12-09 10:54 | ED PDOC ---
Arrival/HPI - General Chief Complaint: Abdominal Pain Time Seen by Provider: 12/09/16 10:45 Historian: Patient - History of Present Illness Time/Duration: Prior to Arrival Symptom Onset: Gradual Symptom Course: Unchanged Associated Symptoms (Text): 12/09/16 10:51 Patient has a large ventral hernia through an incision for colectomy secondary to diverticulitis approximately one year ago. Patient was seen in the emergency department 4 days ago and evaluated by the surgeon and directed to return to the emergency department today for admission in preparation for surgery tomorrow. Apparently, the mesh needed for the surgery was unavailable at that time. All preop for surgery was done 4 days ago, therefore no testing has been ordered. Past Medical History - Infectious Disease Hx of Infectious Diseases: None - Tetanus Immunization Tetanus Immunization: Unknown - Cardiac Hx Cardiac Disorders: No - Pulmonary Hx Respiratory Disorders: No - Neurological Hx Neurological Disorder: No - HEENT Hx HEENT Disorder: No - Renal Hx Renal Disorder: No - Endocrine/Metabolic Hx Endocrine Disorders: No - Hematological/Oncological Hx Blood Disorders: No - Integumentary Hx Dermatological Disorder: No - Musculoskeletal/Rheumatological Hx Musculoskeletal Disorders: No Hx Falls: No - Gastrointestinal Hx Gastrointestinal Disorders: Yes Hx Diverticulitis: Yes Other/Comment: incisional abscess, sigmoid colon resection january 2016 - Genitourinary/Gynecological Hx Genitourinary Disorders: No - Psychiatric Hx Psychophysiologic Disorder: No Hx Substance Use: No (DENIES) - Past Surgical History Past Surgical History: No Previous - Surgical History Hx Appendectomy: Yes Other/Comment: Sigmoid colon resection on 02/24/2016. incisional abscess multiple complications - Anesthesia Hx Anesthesia: Yes - Suicidal Assessment Feels Threatened In Home Enviroment: No Family/Social History - Physician Review Nursing Documentation Reviewed: Yes Family/Social History: Unknown Family HX Smoking Status: Heavy Smoker > 10 Cigarettes Daily Hx Alcohol Use: Yes (Socially) Frequency of alcohol use: Socially Hx Substance Use: No (DENIES) Hx Substance Use Treatment: Yes Allergies/Home Meds Allergies/Adverse Reactions: Allergies erythromycin base Allergy (Verified 12/09/16 10:41) RASH Penicillins Allergy (Verified 12/09/16 10:41) RASH venom-honey bee [bee venom (honey bee)] Allergy (Verified 12/09/16 10:41) ANAPHYLAXIS Home Medications: Home Meds Medication Instructions Recorded Confirmed No Known Home Med 12/03/16 12/09/16 Review of Systems - Physician Review All systems were reviewed & negative as marked: Yes - Review of Systems Constitutional: Normal Respiratory: Normal Cardiovascular: Normal Gastrointestinal: Abdominal Pain. absent: Constipation, Diarrhea, Nausea, Vomiting, Anorexia Neurological: absent: Headache, Dizziness Physical Exam Vital Signs Temp Pulse Resp BP Pulse Ox 12/09/16 11:12 98 H 18 132/79 97 12/09/16 10:37 98.1 F 110 H 18 134/81 97 Temperature: Afebrile Blood Pressure: Normal Pulse: Regular Respiratory Rate: Normal Appearance: Positive for: Well-Appearing, Non-Toxic, Comfortable, Other ( Morbidly obese) Pain Distress: None Mental Status: Positive for: Alert and Oriented X 3 - Systems Exam Head: Present: Atraumatic, Normocephalic Pupils: Present: PERRL Extroacular Muscles: Present: EOMI Conjunctiva: Present: Normal Mouth: Present: Moist Mucous Membranes Pharnyx: No: ERYTHEMA, EXUDATE, TONSILS ENLARGED Respiratory/Chest: Present: Clear to Auscultation, Good Air Exchange, Decreased Breath Sounds. No: Respiratory Distress, Accessory Muscle Use Cardiovascular: Present: Regular Rate and Rhythm, Normal S1, S2, Tachycardic. No: Murmurs Abdomen: Present: Tenderness, Distention, Normal Bowel Sounds, Hernias. No: Peritoneal Signs, Rebound, Guarding Upper Extremity: Present: Normal Inspection. No: Cyanosis, Edema Lower Extremity: Present: Normal Inspection. No: Edema Neurological: Present: GCS=15, CN II-XII Intact, Speech Normal, Motor Func Grossly Intact Skin: Present: Warm, Dry, Normal Color. No: Rashes Psychiatric: Present: Alert, Oriented x 3, Normal Insight, Normal Concentration Disposition/Present on Arrival - Present on Arrival Any Indicators Present on Arrival: No History of DVT/PE: No History of Uncontrolled Diabetes: No Urinary Catheter: No History of Decub. Ulcer: No History Surgical Site Infection Following: None - Disposition Have Diagnosis and Disposition been Completed?: Yes Diagnosis: Abdominal hernia Disposition: HOSPITALIZED Disposition Time: 11:00 Patient Plan: Admission Condition: GOOD Referrals: [facility] Julian Saleem, [Primary Care Provider] - Follow up with primary
--- NOTE | 2016-12-09 13:34 | CP.PCM.HP ---
History of Present Illness - History of Present Illness History of Present Illness: General surgery H&P for Jame Izquierdo PGY1 cc: abdominal pain HPI: Patient is a 36yo male with history of diverticulitis s/p sigmoid colon resection with anastamosis approx 1 yr ago that presented c/o abdominal pain secondary to a ventral wall protrusion that started several months after his colon resection. Patient reported that over the last 8 months his abdomen has become more distended due to a hernia-like protrusion that occasionally causes mild tenderness and nausea. He reported normal bowel/bladder habits and good appetite. He was previously seen in the ED on Thursday and told to come in on Thursday for admission to the surgical service for anticipated surgical intervention on Thursday. Denies chest pain, palpitations, SOB. 12 point ROS as per note above, otherwise negative PMHx: diverticulitis, hyperlipidemia PSHx: colon resection (~1yr ago), appendectomy Allergies: erythromycin, penicillin Family Hx: Mother: DM; Father: denies Social Hx: Tobacco use ~1 1/2ppd for over 15yrs; denies alcohol and illicit drugs Present on Admission - Present on Admission Any Indicators Present on Admission: No Past Patient History - Infectious Disease Hx of Infectious Diseases: None - Tetanus Immunizations Tetanus Immunization: Unknown - Past Medical History & Family History Past Medical History?: Yes - Past Social History Smoking Status: Heavy Smoker > 10 Cigarettes Daily - CARDIAC Hx Cardiac Disorders: No - PULMONARY Hx Respiratory Disorders: No - NEUROLOGICAL Hx Neurological Disorder: No - HEENT Hx HEENT Problems: No - RENAL Hx Chronic Kidney Disease: No - ENDOCRINE/METABOLIC Hx Endocrine Disorders: No - HEMATOLOGICAL/ONCOLOGICAL Hx Blood Disorders: No - INTEGUMENTARY Hx Dermatological Problems: No - MUSCULOSKELETAL/RHEUMATOLOGICAL Hx Musculoskeletal Disorders: No Hx Falls: No - GASTROINTESTINAL Hx Gastrointestinal Disorders: Yes Hx Diverticulitis: Yes Other/Comment: incisional abscess, sigmoid colon resection january 2016 - GENITOURINARY/GYNECOLOGICAL Hx Genitourinary Disorders: No - PSYCHIATRIC Hx Psychophysiologic Disorder: No Hx Substance Use: No (DENIES) - SURGICAL HISTORY Hx Appendectomy: Yes Other/Comment: Sigmoid colon resection on 02/24/2016. incisional abscess multiple complications - ANESTHESIA Hx Anesthesia: Yes Meds Allergies/Adverse Reactions: Allergies Allergy/AdvReac Type Severity Reaction Status Date / Time erythromycin base Allergy RASH Verified 12/09/16 10:41 Penicillins Allergy RASH Verified 12/09/16 10:41 venom-honey bee Allergy ANAPHYLAXIS Verified 12/09/16 10:41 [bee venom (honey bee)] Physical Exam - Constitutional Appears: Well, Non-toxic, No Acute Distress - Head Exam Head Exam: ATRAUMATIC, NORMAL INSPECTION, NORMOCEPHALIC - Eye Exam Eye Exam: EOMI, PERRL - ENT Exam ENT Exam: Mucous Membranes Moist - Neck Exam Neck exam: Positive for: Normal Inspection. Negative for: Lymphadenopathy, Tenderness, Thyromegaly - Respiratory Exam Respiratory Exam: Clear to Auscultation Bilateral. absent: Rales, Rhonchi, Wheezes - Cardiovascular Exam Cardiovascular Exam: RRR, +S1, +S2. absent: Diastolic murmur, Gallop, Rubs, Systolic Murmur - GI/Abdominal Exam GI & Abdominal Exam: Distended, Hernia, Normal Bowel Sounds, Soft, Tenderness. absent: Firm, Guarding, Rebound, Rigid Additional comments: reducible ventral wall protrusion, mildly tender to palpation, no rebound/ guarding - Extremities Exam Extremities exam: Positive for: normal inspection. Negative for: pedal edema - Neurological Exam Neurological exam: Alert, CN II-XII Intact, Oriented x3 - Psychiatric Exam Psychiatric exam: Normal Affect, Normal Mood - Skin Skin Exam: Dry, Intact, Normal Color, Warm Results - Vital Signs Recent Vital Signs: Last Vital Signs Temp 98.1 F 12/09/16 10:37 Pulse 98 H 12/09/16 11:12 Resp 18 12/09/16 11:12 BP 132/79 12/09/16 11:12 Pulse Ox 97 12/09/16 11:12 Assessment & Plan - Assessment and Plan (Free Text) Plan: 36yo male with history of diverticulitis presents c/o abdominal pain 2/2 diastasis recti 1. Diastasis recti -Patient scheduled for surgical intervention tomorrow (12/10/16) -EKG -CXR -CBC/CMP/PT/PTT in AM -IVF -NPO past midnight -SCD's -Chlorhexadine bath night prior to surgery -CT abd/pelvis reviewed -Labs reviewed Case discussed with attending, Dr. Lara - Date & Time Date: 12/09/16 Time: 13:38
--- NOTE | 2016-12-09 14:06 | RAD ---
HISTORY: pre-op COMPARISON: 03/27/2016 FINDINGS: LUNGS: No active pulmonary disease. PLEURA: No significant pleural effusion identified, no pneumothorax apparent. CARDIOVASCULAR: Normal. OSSEOUS STRUCTURES: No significant abnormalities. VISUALIZED UPPER ABDOMEN: Normal. OTHER FINDINGS: None. IMPRESSION: No active disease.
[2016-12-09] MEDS: Oxycodone/Acetaminophen 5/325 mg Tab PO PRN ×2 (16:57→21:00)
[2016-12-09] MEDS ORDERED: Pneumococcal 23-Valent Vaccine IM ONE (21:45)
--- NOTE | 2016-12-09 22:28 | CARD ---
APPROVED REPORT EKG Measurement Heart [id number] <Conclusion> Normal sinus rhythm Normal ECG
[2016-12-09] MEDS ORDERED: HYDROmorphone 0.5 mg/0.5 ml ISec IVP STA (23:57)
[2016-12-10] MEDS ORDERED: HYDROmorphone 0.5 mg/0.5 ml ISec ONE ×3 (02:15→11:51)
[2016-12-10] MEDS: Sodium Chloride 0.9% 1,000 ML IV SCH ×2 (02:40→10:57)
[2016-12-10 06:31] LABS: ADD MANUAL DIFF? NO
[2016-12-10 06:51] LABS: INR 0.99 (0.93-1.08); PARTIAL THROMBOPLASTIN TIME 27.5 Seconds (23.7-30.8)
[2016-12-10 07:01] LABS: ALB/GLOB RATIO 1.2 (1.1-1.8); ALKALINE PHOSPHATASE 66 U/L (38-133); ALT/SGPT 70 U/L (7-56); AST/SGOT 27 U/L (15-59); BILIRUBIN,TOTAL 0.5 mg/dL (0.2-1.3); BLOOD UREA NITROGEN 15 mg/dL (7-21); CALCIUM 8.7 mg/dL (8.4-10.5); CARBON DIOXIDE 31 mmol/L (21-33); CHLORIDE 103 mmol/L (98-107); GFR AFRICAN-AMERICAN > 60; GLUCOSE,RANDOM 90 mg/dL (70-110); POTASSIUM 4.8 mmol/L (3.6-5.0); SODIUM 140 mmol/L (132-148)
[2016-12-10 07:11] LABS: BASO # 0.01 K/mm3 (0.0-2.0); BASO % 0.2 % (0.0-3.0); EOS # 0.1 (0.0-0.7); EOS % 1.3 % (1.5-5.0); GRAN # 3.35 (1.4-6.5); HEMATOCRIT 39.9 % (42.0-52.0); LYMPH # 2.4 (1.2-3.4); LYMPH % 37.9 % (22.0-35.0); MEAN CELL VOLUME 89.5 fL (80.0-105.0); MEAN CORPUSCULAR HEMOGLOBIN 29.4 pg (25.0-35.0); MEAN CORPUSCULAR HGB CONC 32.8 g/dl (31.0-37.0); MEAN PLATELET VOLUME 8.9 fl (7.0-11.0); MONO # 0.4 (0.1-0.6); MONO % 6.6 % (1.0-6.0); PLATELET COUNT 224 10^3/uL (120.0-450.0); WHITE BLOOD COUNT 6.2 10^3/ul (4.5-11.0)
[2016-12-10] MEDS ORDERED: Vancomycin 1 g Inj ONE (07:40)
[2016-12-10] MEDS ORDERED: Propofol 10 mg/ml Inj (20 ML) ONE (07:56)
[2016-12-10] MEDS ORDERED: Midazolam 2 MG/2 ML VIAL ONE (07:56)
[2016-12-10] MEDS ORDERED: Rocuronium 10 mg/ml (5 ml) ONE ×3 (08:29→10:01)
[2016-12-10] MEDS ORDERED: Succinylcholine 200 mg/10 ml Inj IV ONE (08:29)
[2016-12-10] MEDS ORDERED: Morphine 4 mg/ml ISec ONE ×2 (09:35→10:35)
[2016-12-10] MEDS ORDERED: Neostigmine Methylsulfate 3mg/3ml Syringe IV ONE (09:47)
[2016-12-10] MEDS ORDERED: Glycopyrrolate 0.2 mg/ml (2ml vial) ONE (09:48)
[2016-12-10] MEDS ORDERED: Bupivacaine 0.25% Inj(30mL) ONE (10:35)
[2016-12-10] MEDS ORDERED: Desflurane Inhalation Anesthetic Liq (240 ml) ONE (10:38)
[2016-12-10] MEDS ORDERED: HYDROmorphone 2 mg/ml ISec ONE (10:40)
--- NOTE | 2016-12-10 11:04 | PCM.SURG1 ---
Surgeon's Initial Post Op Note - Surgeon's Notes Surgeon: Dr. Lara Outdoor Studies Director: Dr. Hamilton PGY-2, Dr. Felipe PGY-1 Type of Anesthesia: General Endo Anesthesia Administered By: Dr. Chang Pre-Operative Diagnosis: Ventral hernia Operative Findings: See operative report Post-Operative Diagnosis: Same Operation Performed: Ventral hernia repair with mesh, lysis of adhesions Specimen/Specimens Removed: none Estimated Blood Loss: EBL {In ML}: 50 Blood Products Given: N/A Drains Used: Reji Post-Op Condition: Good Date of Surgery/Procedure: 12/10/16 Time of Surgery/Procedure: 11:04
[2016-12-10] MEDS ORDERED: Lactated Ringer's 1,000 ML IV SCH (11:10)
[2016-12-10] MEDS ORDERED: HYDROmorphone 1 mg/ml ISec IVP PRN (11:14)
[2016-12-10] MEDS ORDERED: HYDROmorphone 0.5 mg/0.5 ml ISec IVP PRN (11:18)
[2016-12-10] MEDS ORDERED: HYDROmorphone 0.5 mg/0.5 ml ISec IVP ONE (11:53)
[2016-12-10] MEDS: HYDROmorphone 1 mg/ml ISec IVP PRN ×3 (17:33→23:21)
[2016-12-10 17:37] VITALS: RESP 20
[2016-12-10] MEDS: Oxycodone/Acetaminophen 5/325 mg Tab PO PRN (18:47)
--- NOTE | 2016-12-10 19:53 | OP ---
PROCEDURE DATE: 12/10/2016 SURGEON: Dr. Lara. ADMINISTRATIVE ASSISTANT OFFICE MANAGER: Dr. Hamilton and Dr. Felipe. ANESTHESIA: General, Dr. Chang. PREOPERATIVE DIAGNOSIS: Incisional hernia. POSTOPERATIVE DIAGNOSIS: Incisional hernia. PROCEDURE: Incisional hernia repair with mesh and lysis of adhesions. DESCRIPTION OF OPERATION: With the patient in the supine position under adequate general anesthesia, the abdomen was prepped and draped in the usual sterile manner. The patient was noted to have a midline incision extending from the upper abdomen down to below the umbilicus with an area of herniation palpable primarily in the upper portion of the incision. The incision was reopened in the midline, taken down through the full thickness of skin. A thickened layer of skin with possibly some fascial remnant was incised to expose the hernial contents; there was not a well-defined hernia sac. Upon entering through the full thickness of skin there was noted to be a moderate amount of omentum and a reducible, transverse colon. All adhesions to this extraperitoneal pocket were sharply freed to expose the edge of the actual abdominal wall confirmed by a palpation with deep to this layer where the liver could be palpated. Working along each side of the defect the moderate to small bowel adhesions were from the abdominal wall circumferentially until a clear edge was identified circumferentially. The dissection continued inferiorly towards the umbilicus where a larger pocket of hernia which contained adherent small bowel was noted to extend into the pannus and the skin over this was opened and all bowel contents were sharply released to allow the small bowel and omentum to be again reduced beneath the fascial level. All serosal defects were repaired with interrupted 4-0 Vicryl sutures and the edge of the abdominal wall was identified circumferentially and retracted toward the midline. At this point, the defect was noted to be approximately 5 inches in width x 8 inches in length and a 6 x 11 inch Ventrio hernia mesh was selected to perform an underlay repair. The mesh was placed beneath the fascia with the PTFE surface directed inward towards the peritoneal cavity and using mild tension on the lateral abdominal wall, the fascial edges were sutured to the outer mesh portion of the patch to maintain the repair and the suturing was done with interrupted sutures of 0 PDS. This was sutured circumferentially beginning below the umbilicus and continuing upward to just below the area of xiphoid. When this had been completed, a 15 Upper Sor[place] Reji drain was placed above the mesh and brought out through a puncture incision in the right lower quadrant. The thinned edge of the midline fascia, which had formed a portion of the diastasis and outer layer of the hernia, was then reapproximated over the mesh with running sutures of 0 PDS and the skin was closed with olvin. A dry sterile dressing was applied followed by an abdominal binder. The patient tolerated the procedure well and transferred to recovery room in stable condition. Estimated blood loss for the procedure was 50 mL. Areli Lara MD cc: 58 TT: 12/10/2016 19:52:43 jn MTDD
[2016-12-11] MEDS ORDERED: HYDROmorphone 2 mg/ml ISec ONE ×7 (01:07→19:06)
[2016-12-11] MEDS ORDERED: Oxycodone/Acetaminophen 10/325 mg Tab PO PRN (19:23)
[2016-12-11] MEDS: HYDROmorphone 2 mg/ml ISec IVP PRN (22:13)
[2016-12-12] MEDS: HYDROmorphone 2 mg/ml ISec IVP PRN ×3 (01:06→06:52)
[2016-12-12] MEDS ORDERED: Oxycodone/Acetaminophen 10/325 mg Tab PO PRN (07:58)
--- NOTE | 2016-12-12 08:10 | CP.PCM.PN ---
Subjective - Date & Time of Evaluation Date of Evaluation: 12/12/16 Time of Evaluation: 08:07 - Subjective Subjective: Gen Sx: Dr Lara Pt S&E. NAEO. Resting comfortably. Pain well controlled but has been requiring dilaudid 2mg q3h. Tolerating diet. Passing flatus. OOB and ambulating and using incentive spirometer. Pt states he wants to go home soon. 40cc output from drain overnight Objective - Vital Signs/Intake and Output Vital Signs (last 24 hours): Temp Pulse Resp BP Pulse Ox 98.8 F 109 H 20 109/61 94 L 12/11/16 16:00 12/11/16 16:00 12/11/16 16:00 12/11/16 16:00 12/11/16 16:00 Intake and Output: 12/12/16 12/12/16 06:59 18:59 Intake Total 1260 Balance 1260 - Medications Medications: Current Medications Heparin Sodium (Porcine) (Heparin) 5,000 units SC Q12 ELEANOR PRN Reason: Protocol Last Admin: 12/11/16 22:13 Dose: 5,000 units Hydromorphone HCl (Dilaudid) 1 mg IVP Q3H PRN PRN Reason: Pain, severe (8-10) Sodium Chloride (Sodium Chloride 0.9%) 1,000 mls @ 100 mls/hr IV .Q10H [facility] Last Admin: 12/10/16 10:57 Dose: Not Given Ondansetron HCl (Zofran Inj) 4 mg IVP ONCE PRN PRN Reason: Nausea/Vomiting Oxycodone/Acetaminophen (Percocet 10/325 Mg Tab) 2 tab PO Q4H PRN PRN Reason: Pain, moderate (4-7) Pantoprazole Sodium (Protonix Inj) 40 mg IVP DAILY [facility] Last Admin: 12/10/16 10:57 Dose: Not Given - Labs Labs: 12/10/16 06:20 12/10/16 06:20 PT 10.7 Seconds (9.9-11.8) 12/10/16 06:20 INR 0.99 (0.93-1.08) 12/10/16 06:20 APTT 27.5 Seconds (23.7-30.8) 12/10/16 06:20 - Constitutional Appears: Non-toxic, No Acute Distress - Head Exam Head Exam: NORMOCEPHALIC - Respiratory Exam Respiratory Exam: absent: Accessory Muscle Use, Respiratory Distress - Cardiovascular Exam Cardiovascular Exam: REGULAR RHYTHM. absent: Tachycardia - GI/Abdominal Exam GI & Abdominal Exam: Soft, Tenderness (post-op). absent: Distended, Firm, Guarding, Rigid Additional comments: midline incision c/d/i: dressing changed - Neurological Exam Neurological Exam: Alert, Awake, Oriented x3 - Psychiatric Exam Psychiatric exam: Normal Affect, Normal Mood - Skin Skin Exam: Normal Color, Warm Assessment and Plan - Assessment and Plan (Free Text) Assessment: 36M POD#2 s/p ventral hernia repair Plan: pain regiment adjusted: Percocet x 2 Q4H, dilaudid reduced to 1 mg for breakthrough will start colace for BM cont ambulation and IS use possible D/C tomorrow d/w Dr Marco Mckee, DO, PGY2
[2016-12-12 10:37] LABS: ALB/GLOB RATIO 1.1 (1.1-1.8); ALKALINE PHOSPHATASE 56 U/L (38-133); ALT/SGPT 69 U/L (7-56); AST/SGOT 30 U/L (15-59); BILIRUBIN,TOTAL 1.2 mg/dL (0.2-1.3); BLOOD UREA NITROGEN 12 mg/dL (7-21); CALCIUM 8.5 mg/dL (8.4-10.5); CARBON DIOXIDE 29 mmol/L (21-33); CHLORIDE 98 mmol/L (98-107); GFR AFRICAN-AMERICAN > 60; GLUCOSE,RANDOM 92 mg/dL (70-110); MAGNESIUM 1.7 mg/dL (1.7-2.2); PHOSPHOROUS 3.7 mg/dL (2.5-4.5); POTASSIUM 3.9 mmol/L (3.6-5.0); SODIUM 135 mmol/L (132-148); TOTAL PROTEIN 6.6 g/dL (5.8-8.3)
[2016-12-12] MEDS: HYDROmorphone 1 mg/ml ISec IVP PRN ×5 (10:50→23:47)
[2016-12-12 12:09] LABS: HEMATOCRIT 37.2 % (42.0-52.0); MEAN CELL VOLUME 90.5 fL (80.0-105.0); MEAN CORPUSCULAR HEMOGLOBIN 29.9 pg (25.0-35.0); MEAN CORPUSCULAR HGB CONC 33.1 g/dl (31.0-37.0); MEAN PLATELET VOLUME 8.9 fl (7.0-11.0); RED CELL DISTRIBUTION WIDTH 13.2 % (11.5-14.5); WHITE BLOOD COUNT 8.5 10^3/ul (4.5-11.0)
[2016-12-13] MEDS: HYDROmorphone 1 mg/ml ISec IVP PRN ×3 (02:50→09:12)
[2016-12-13 09:38] VITALS: BP 116/66; PULSE 104; TEMP 98.1; O2SAT 96
--- NOTE | 2016-12-13 09:58 | CP.PCM.DIS ---
Provider - Provider Date of Admission: 12/09/16 13:16 Attending physician: Areli Lara MD Primary care physician: NO PRIMARY CARE PROVIDER Time Spent in preparation of Discharge (in minutes): 45 Hospital Course - Lab Results Lab Results: Most Recent Lab Values WBC 8.5 10^3/ul (4.5-11.0) D 12/11/16 07:00 RBC 4.11 10^6/uL (3.5-6.1) 12/11/16 07:00 Hgb 12.3 gm/dL (14.0-18.0) L 12/11/16 07:00 Hct 37.2 % (42.0-52.0) L 12/11/16 07:00 MCV 90.5 fL (80.0-105.0) 12/11/16 07:00 MCH 29.9 pg (25.0-35.0) 12/11/16 07:00 MCHC 33.1 g/dl (31.0-37.0) 12/11/16 07:00 RDW 13.2 % (11.5-14.5) 12/11/16 07:00 Plt Count 221 10^3/uL (120.0-450.0) 12/11/16 07:00 MPV 8.9 fl (7.0-11.0) 12/11/16 07:00 Gran % 54.0 % (50.0-68.0) 12/10/16 06:20 Lymph % (Auto) 37.9 % (22.0-35.0) H 12/10/16 06:20 [place] % (Auto) 6.6 % (1.0-6.0) H 12/10/16 06:20 Eos % (Auto) 1.3 % (1.5-5.0) L 12/10/16 06:20 Baso % (Auto) 0.2 % (0.0-3.0) 12/10/16 06:20 Gran # 3.35 (1.4-6.5) 12/10/16 06:20 Lymph # 2.4 (1.2-3.4) 12/10/16 06:20 [place] # 0.4 (0.1-0.6) 12/10/16 06:20 Eos # 0.1 (0.0-0.7) 12/10/16 06:20 Baso # 0.01 K/mm3 (0.0-2.0) 12/10/16 06:20 PT 10.7 Seconds (9.9-11.8) 12/10/16 06:20 INR 0.99 (0.93-1.08) 12/10/16 06:20 APTT 27.5 Seconds (23.7-30.8) 12/10/16 06:20 Sodium 135 mmol/L (132-148) 12/11/16 07:00 Potassium 3.9 mmol/L (3.6-5.0) 12/11/16 07:00 Chloride 98 mmol/L (98-107) 12/11/16 07:00 Carbon Dioxide 29 mmol/L (21-33) 12/11/16 07:00 Anion Gap 12 (10-20) 12/11/16 07:00 BUN 12 mg/dL (7-21) 12/11/16 07:00 Creatinine 0.9 mg/dL (0.5-1.4) 12/11/16 07:00 Est GFR ( Amer) > 60 12/11/16 07:00 Est GFR (Non-Af Amer) > 60 12/11/16 07:00 Random Glucose 92 mg/dL (70-110) 12/11/16 07:00 Calcium 8.5 mg/dL (8.4-10.5) 12/11/16 07:00 Phosphorus 3.7 mg/dL (2.5-4.5) 12/11/16 07:00 Magnesium 1.7 mg/dL (1.7-2.2) 12/11/16 07:00 Total Bilirubin 1.2 mg/dL (0.2-1.3) 12/11/16 07:00 AST 30 U/L (15-59) 12/11/16 07:00 ALT 69 U/L (7-56) H 12/11/16 07:00 Alkaline Phosphatase 56 U/L (38-133) 12/11/16 07:00 Total Protein 6.6 g/dL (5.8-8.3) 12/11/16 07:00 Albumin 3.4 g/dL (3.0-4.8) 12/11/16 07:00 Globulin 3.2 gm/dL 12/11/16 07:00 Albumin/Globulin Ratio 1.1 (1.1-1.8) 12/11/16 07:00 Blood Type O POSITIVE 12/10/16 06:20 Antibody Screen Negative 12/10/16 06:20 BBK History Checked Patient has bt 12/10/16 06:20 - Hospital Course Hospital Course: Patient is a 36yo male with history of diverticulitis s/p sigmoid colon resection with anastamosis approx 1 yr ago that presented c/o abdominal pain secondary to a ventral wall protrusion that started several months after his colon resection. Patient reported that over the last 8 months his abdomen has become more distended due to a hernia-like protrusion that occasionally causes mild tenderness and nausea. He reported normal bowel/bladder habits and good appetite. He was previously seen in the ED on Thursday for same reason. Denies chest pain, palpitations, SOB. Pt underwent ventral hernia repair and drain was placed. Pt tolerated the surgery well. Post op, pt tolerating diet and passed gas. Pain controlled. Pt will go home with the drain. Pt was educated on drain management and instructed to take log. Sending home with pain med and instructed to f/u w Dr. Lara in 1 week. PMHx: diverticulitis, hyperlipidemia PSHx: colon resection (~1yr ago), appendectomy Allergies: erythromycin, penicillin Family Hx: Mother: DM; Father: denies Social Hx: Tobacco use ~1 1/2ppd for over 15yrs; denies alcohol and illicit drugs Discharge Exam - Head Exam Head Exam: NORMAL INSPECTION, NORMOCEPHALIC - Eye Exam Eye Exam: EOMI, Normal appearance, PERRL Pupil Exam: NORMAL ACCOMODATION, PERRL - ENT Exam ENT Exam: Mucous Membranes Moist - Neck Exam Neck exam: Full Rom - Respiratory Exam Respiratory Exam: NORMAL BREATHING PATTERN, UNREMARKABLE - Cardiovascular Exam Cardiovascular Exam: REGULAR RHYTHM - GI/Abdominal Exam GI & Abdominal Exam: Soft, Tenderness. absent: Distended, Firm, Guarding, Hernia, Pulsatile Mass, Rebound, Rigid Additional comments: [place] in place. No signs of infection. - Rectal Exam Rectal Exam: NORMAL INSPECTION - Exam Exam: Circumcision, NORMAL INSPECTION External exam: NORMAL EXTERNAL EXAM Speculum exam: NORMAL SPECULUM EXAM Bimanual exam: NORMAL BIMANUAL EXAM - Neurological Exam Neurological exam: Alert, CN II-XII Intact, Normal Gait, Oriented x3, Reflexes Normal - Psychiatric Exam Psychiatric exam: Normal Affect, Normal Mood - Skin Skin Exam: Dry, Intact, Normal Color, Warm Discharge Plan - Follow Up Plan Condition: GOOD Disposition: HOME/ ROUTINE Instructions: Ventral Hernia (DC), Ventral Hernia Repair (DC) Additional Instructions: follow up with Dr. Lara in 1 week to take the drain out. Keep the drainage output daily Take Percocet 1 every 8 hrs as needed. Take colace daily while on Percocet Keep the incision and drain site clean and dry No heavy lifting over 15 lbs for 6 wks Do not strain too much. Referrals: PCP,NO [Primary Care Provider] - Areli Lara MD [Staff Provider] -
== END 2016-12-13 13:51 | disposition home or self-care (01) | DRG 151 ==
LOC: ED 10:21 → OBSVTOIN 13:16 → ERH 13:16 → 5RSO 15:11
PROVIDERS: ADMIT Specialist; ATTEND Specialist
PROC: 0DN80ZZ Release Small Intestine, Open Approach (ICD-10-PCS; 2016-12-10)
PROC: 0WUF0JZ Supplement Abdominal Wall with Synthetic Substitute, Open Approach (ICD-10-PCS; principal; 2016-12-10 07:30)
DX: K43.2 Incisional hernia without obstruction or gangrene (principal); E78.5 Hyperlipidemia, unspecified; Z88.0 Allergy status to penicillin

== ENCOUNTER 2017-02-09 20:57 | Emergency (ER) | payer MEDICAID ==
[2017-02-09 21:00] VITALS: BMI 48.8
[2017-02-09 21:04] VITALS: RESP 18
--- NOTE | 2017-02-09 21:39 | ED PDOC ---
Arrival/HPI - General Chief Complaint: Abdominal Pain Time Seen by Provider: 02/09/17 21:19 Historian: Patient - History of Present Illness Narrative History of Present Illness (Text): 02/09/17 21:39 Bill Doyle is a 36 year old male, whose past medical history includes diverticulitis s/p sigmoid colon resection with anastamosis, hyperlipidemia, and diabetes, who presents to the ED complaining of abdominal distention. Patient states he recently underwent ventral hernia repair with mesh placement on 12/10/2016. Patient states for the first few weeks post-op he felt fine, but approximately 2-3 weeks prior mid-abdominal distention similar to previous ventral hernia returned. Patient reports associated pain to the area. Patient states he is able to tolerate PO and denies any nausea, vomiting, diarrhea, changes in appetite, fever, chills, shortness of breath, or any other complaints. Surgeon: Dr. Sherlyn Lara Time/Duration: < month (2-3 weeks) Symptom Onset: Gradual Symptom Course: Worsening Activities at Onset: Rest, Light Context: Home Past Medical History - Provider Review Nursing Documentation Reviewed: Yes - Infectious Disease Hx of Infectious Diseases: None - Tetanus Immunization Tetanus Immunization: Unknown - Cardiac Hx Cardiac Disorders: No - Pulmonary Hx Respiratory Disorders: No - Neurological Hx Neurological Disorder: No - HEENT Hx HEENT Disorder: No - Renal Hx Renal Disorder: No - Endocrine/Metabolic Hx Endocrine Disorders: No - Hematological/Oncological Hx Blood Transfusions: No Hx Blood Transfusion Reaction: No - Integumentary Hx Dermatological Disorder: No - Musculoskeletal/Rheumatological Hx Musculoskeletal Disorders: No Hx Falls: No - Gastrointestinal Hx Gastrointestinal Disorders: Yes Hx Diverticulitis: Yes Other/Comment: incisional abscess, sigmoid colon resection january 2016 - Genitourinary/Gynecological Hx Genitourinary Disorders: No - Psychiatric Hx Psychophysiologic Disorder: No Hx Substance Use: No (DENIES) - Past Surgical History Past Surgical History: No Previous - Surgical History Other/Comment: Sigmoid colon resection on 02/24/2016. incisional abscess multiple complications. Abd hernia mesh sx - Anesthesia Hx Anesthesia: Yes Hx Anesthesia Reactions: No Hx Malignant Hyperthermia: No - Suicidal Assessment Feels Threatened In Home Enviroment: No Family/Social History - Physician Review Nursing Documentation Reviewed: Yes Family/Social History: Unknown Family HX Smoking Status: Heavy Smoker > 10 Cigarettes Daily Hx Alcohol Use: Yes (social) Hx Substance Use: No (DENIES) Hx Substance Use Treatment: Yes Allergies/Home Meds Allergies/Adverse Reactions: Allergies erythromycin base Allergy (Verified 12/09/16 10:41) RASH Penicillins Allergy (Verified 12/09/16 10:41) RASH venom-honey bee [bee venom (honey bee)] Allergy (Verified 12/09/16 10:41) ANAPHYLAXIS Review of Systems - Physician Review All systems were reviewed & negative as marked: Yes - Review of Systems Constitutional: Normal. absent: Fevers Eyes: Normal ENT: Normal Respiratory: Normal. absent: SOB, Cough Cardiovascular: Normal. absent: Chest Pain Gastrointestinal: Abdominal Pain, Other (+mid abdomen protrusion). absent: Diarrhea, Nausea, Vomiting Genitourinary Male: Normal Musculoskeletal: Normal Skin: Normal Neurological: Normal Endocrine: Normal Hemo/Lymphatic: Normal Psychiatric: Normal Physical Exam Vital Signs Reviewed: Yes Vital Signs Temp Pulse Resp BP Pulse Ox 02/10/17 02:58 97.5 F L 91 H 18 122/76 94 L 02/09/17 21:04 97.9 F 107 H 18 147/80 95 Temperature: Afebrile Blood Pressure: Normal Pulse: Regular Respiratory Rate: Normal Appearance: Positive for: Well-Appearing, Non-Toxic, Comfortable Pain Distress: None Mental Status: Positive for: Alert and Oriented X 3 - Systems Exam Head: Present: Atraumatic, Normocephalic Pupils: Present: PERRL Extroacular Muscles: Present: EOMI Conjunctiva: Present: Normal Mouth: Present: Moist Mucous Membranes Neck: Present: Normal Range of Motion Respiratory/Chest: Present: Clear to Auscultation, Good Air Exchange. No: Respiratory Distress, Accessory Muscle Use Cardiovascular: Present: Regular Rate and Rhythm, Normal S1, S2. No: Murmurs Abdomen: Present: Tenderness (Diffuse mid abdominal tenderness), Distention, Normal Bowel Sounds. No: Peritoneal Signs Back: Present: Normal Inspection Upper Extremity: Present: Normal Inspection. No: Cyanosis, Edema Lower Extremity: Present: Normal Inspection. No: Edema Neurological: Present: GCS=15, CN II-XII Intact, Speech Normal Skin: Present: Warm, Dry, Normal Color. No: Rashes Psychiatric: Present: Alert, Oriented x 3, Normal Insight, Normal Concentration Medical Decision Making ED Course and Treatment: 02/09/17 21:39 Impression: 36 year old male c/o mid abdominal distention with pain for 2-3 weeks. Plan: -- CT Abdomen and Pelvis with IV contrast -- Labs -- IV fluids -- Reassess and disposition Progress Notes: 02/09/17 21:[address] Irena Fuchs, surgical services director puff iron operator, who is aware and agrees with plan. 02/10/17 02:45 Reviewed radiology, CT Abdomen and Pelvis shows: 1. Fluid collection subjacent to anterior abdominal wall. DDX: Seroma, hematoma, abscess. Clinical correlation is needed. 2. Incidental/non-acute findings are described above. 02/10/17 03:[address] Lara, who is aware and agrees with plan. Accepts pt in to her service. Pt will go to [facility] observation for abdominal pain. vice president for philanthropy notified. Pt is no acute distress. Discussed results and hospital observation plan with pt , who is aware and verbalizes understanding. - Lab Interpretations Lab Results: 02/09/17 23:01 02/09/17 23:01 Lab Results 02/09/17 23:01: WBC 8.9, RBC 4.55, Hgb 13.8 L, Hct 40.7 L, MCV 89.5, MCH 30.3, MCHC 33.9, RDW 12.9, Plt Count 276, MPV 8.8 02/09/17 23:01: Sodium 141, Potassium 4.3, Chloride 102, Carbon Dioxide 28, Anion Gap 15, BUN 17, Creatinine 0.8, Est GFR ( Amer) > 60, Est GFR (Non- Af Amer) > 60, Random Glucose 108, Calcium 9.4, Total Bilirubin 0.3, AST 31, ALT 64 H, Alkaline Phosphatase 84, Total Protein 7.8, Albumin 4.3, Globulin 3.5 , Albumin/Globulin Ratio 1.2 I have reviewed the lab results: Yes - RAD Interpretation Narrative RAD Interpretations (Text): CT Abdomen and Pelvis shows: Lower thorax: No acute findings. ABDOMEN: Liver: Fatty infiltration. Gallbladder and bile ducts: No calcified stones. No ductal dilation. Pancreas: No ductal dilation. No mass. Spleen: No splenomegaly. Adrenals: No mass. Kidneys and ureters: Too small to characterize lesion within LEFT kidney. No hydronephrosis. Stomach and bowel: Postsurgical changes of sigmoid colon. Few scattered diverticula within colon. No associated inflammatory stranding. No definite mural thickening. No obstruction. Appendix: No findings to suggest acute appendicitis. PELVIS: Bladder: Unremarkable. Reproductive: Unremarkable as visualized. ABDOMEN and PELVIS: Intraperitoneal space: No significant fluid collection. No free air. Bones/joints: No acute fracture. Soft tissues: Eventration midline anterior abdominal wall, incompletely imaged. 7.0 x 10.7 x 2.0 cm peripherally enhancing fluid collection subjacent to midline anterior abdominal wall. Vasculature: Unremarkable. No aneurysm. Lymph nodes: No pathologically enlarged lymph nodes. IMPRESSION: 1. Fluid collection subjacent to anterior abdominal wall. DDX: Seroma, hematoma , abscess. Clinical correlation is needed. 2. Incidental/non-acute findings are described above. Radiology Orders: 02/09/17 22:39 ABD PELVIS PO & IV CONTRAST [CT] Stat Origination Specialist: Radiologist - Medication Orders Current Medication Orders: Sodium Chloride (Sodium Chloride 0.9%) 1,000 mls @ 100 mls/hr IV .Q10H ELEANOR Last Admin: 02/09/17 23:48 Dose: 100 mls/hr Discontinued Medications Hydromorphone HCl (Dilaudid) 1 mg IVP STAT STA Stop: 02/10/17 01:08 Last Admin: 02/10/17 01:16 Dose: 1 mg Hydromorphone HCl (Dilaudid) 1 mg IVP STAT STA Stop: 02/10/17 03:04 Iohexol (Omnipaque 240 (50 Ml)) Confirm Administered Dose 50 ml .ROUTE .STK-MED ONE Stop: 02/09/17 23:02 Iohexol (Omnipaque 350 100 Ml) Confirm Administered Dose 350 mg .ROUTE .STK-MED ONE Stop: 02/10/17 01:03 Morphine Sulfate (Morphine) 4 mg IVP STAT STA Stop: 02/10/17 00:01 Last Admin: 02/10/17 00:10 Dose: 4 mg - Scribe Statement The provider has reviewed the documentation as recorded by the Barb Givens Provider Scribe Attestation: All medical record entries made by the Scribe were at my direction and personally dictated by me. I have reviewed the chart and agree that the record accurately reflects my personal performance of the history, physical exam, medical decision making, and the department course for this patient. I have also personally directed, reviewed, and agree with the discharge instructions and disposition. Disposition/Present on Arrival - Present on Arrival Any Indicators Present on Arrival: No History of DVT/PE: No History of Uncontrolled Diabetes: No Urinary Catheter: No History of Decub. Ulcer: No History Surgical Site Infection Following: None - Disposition Have Diagnosis and Disposition been Completed?: Yes Diagnosis: Intractable abdominal pain, Ventral hernia Disposition: HOSPITALIZED Disposition Time: 03:17 Patient Plan: Observation Condition: STABLE Referrals: Moshe Saleem, [Primary Care Provider] - Follow up with primary
[2017-02-09] MEDS ORDERED: Sodium Chloride 0.9% 1,000 ML IV SCH (22:00)
[2017-02-09] MEDS ORDERED: Iohexol 240 (50 ml) ONE (23:01)
--- NOTE | 2017-02-09 23:02 | CP.PCM.CON ---
History of Present Illness - History of Present Illness History of Present Illness: Patient is a 36 year old male with past surgical history of sigmoidectomy in January 2016, and ventral hernia repair with mesh placement by Dr. Lara on , who reports 3 week history of right sided abdominal distention over his surgical site. Patient states that he initially felt well after his surgery, until he noticed a small bump to the right upper abdomen which has become gradually larger. Patient states that he now has pain over the area of distention that is worse with coughing. He has not taken any medications for pain. He denies nausea or vomiting and states that he is passing gas. He states that his last bowel movement was 4 days ago, but he usually has bowel movements every day. Patient additionally reports that 6 days ago, he had a fever and cough x 2 days, which has since resolved. PMHx: Hyperlipedimia, diverticulosis, diabetes PSH: sigmoidectomy 01/2016, hernia repair w/ mesh 11/2016 ALL: Penicillin, erythromycin SocialHx: smoker 1.5 ppd Review of Systems - Review of Systems All systems: reviewed and no additional remarkable complaints except - Constitutional Constitutional: As Per HPI, Fever Additional comments: 6 days ago, now resolved - Cardiovascular Cardiovascular: As Per HPI. absent: Chest Pain - Respiratory Respiratory: Cough Additional comments: started 6 days ago - Gastrointestinal Gastrointestinal: Abdominal Pain, Bloating, Change in Bowel Habits, Constipation. absent: Diarrhea, Nausea, Vomiting Past Patient History - Infectious Disease Hx of Infectious Diseases: None (Diverticulitis, sigmoid colon resection with anastomosis, ventral hernia repair (12/10/16)) - Tetanus Immunizations Tetanus Immunization: Unknown - Past Medical History & Family History Past Medical History?: Yes - Past Social History Smoking Status: Heavy Smoker > 10 Cigarettes Daily Chewing Tobacco Use: No Drugs: Denies - CARDIAC Hx Cardiac Disorders: No - PULMONARY Hx Respiratory Disorders: No - NEUROLOGICAL Hx Neurological Disorder: No - HEENT Hx HEENT Problems: No - RENAL Hx Chronic Kidney Disease: No - ENDOCRINE/METABOLIC Hx Endocrine Disorders: No - HEMATOLOGICAL/ONCOLOGICAL Hx Blood Transfusions: No Hx Blood Transfusion Reaction: No - INTEGUMENTARY Hx Dermatological Problems: No - MUSCULOSKELETAL/RHEUMATOLOGICAL Hx Musculoskeletal Disorders: No Hx Falls: No - GASTROINTESTINAL Hx Gastrointestinal Disorders: Yes Hx Diverticulitis: Yes Other/Comment: incisional abscess, sigmoid colon resection january 2016 - GENITOURINARY/GYNECOLOGICAL Hx Genitourinary Disorders: No - PSYCHIATRIC Hx Psychophysiologic Disorder: No Hx Substance Use: No (DENIES) - SURGICAL HISTORY Other/Comment: Sigmoid colon resection on 02/24/2016. incisional abscess multiple complications. Abd hernia mesh sx - ANESTHESIA Hx Anesthesia: Yes Hx Anesthesia Reactions: No Hx Malignant Hyperthermia: No Meds Allergies/Adverse Reactions: Allergies Allergy/AdvReac Type Severity Reaction Status Date / Time erythromycin base Allergy RASH Verified 12/09/16 10:41 Penicillins Allergy RASH Verified 12/09/16 10:41 venom-honey bee Allergy ANAPHYLAXIS Verified 12/09/16 10:41 [bee venom (honey bee)] - Medications Medications: Current Medications Sodium Chloride (Sodium Chloride 0.9%) 1,000 mls @ 100 mls/hr IV .Q10H ELEANOR Physical Exam - Constitutional Appears: Well, Non-toxic, No Acute Distress - Head Exam Head Exam: ATRAUMATIC, NORMOCEPHALIC - Eye Exam Eye Exam: EOMI, Normal appearance - ENT Exam ENT Exam: Mucous Membranes Moist - Neck Exam Neck exam: Positive for: Full Rom - Respiratory Exam Respiratory Exam: Clear to Auscultation Bilateral, NORMAL BREATHING PATTERN. absent: Accessory Muscle Use, Rales, Rhonchi, Wheezes, Respiratory Distress - Cardiovascular Exam Cardiovascular Exam: REGULAR RHYTHM, +S1, +S2. absent: Systolic Murmur - GI/Abdominal Exam GI & Abdominal Exam: Distended, Hernia, Normal Bowel Sounds, Soft, Tenderness - Extremities Exam Extremities exam: Positive for: full ROM - Neurological Exam Neurological exam: Alert, Normal Gait, Oriented x3 - Psychiatric Exam Psychiatric exam: Normal Affect, Normal Mood - Skin Skin Exam: Dry, Intact, Normal Color, Warm Results - Vital Signs Recent Vital Signs: Last Vital Signs Temp 97.9 F 02/09/17 21:04 Pulse 107 H 02/09/17 21:04 Resp 18 02/09/17 21:04 BP 147/80 02/09/17 21:04 Pulse Ox 95 02/09/17 21:04 - Labs Result Diagrams: 02/09/17 23:01 02/09/17 23:01 Assessment & Plan - Assessment and Plan (Free Text) Assessment: 36M abdominal pain s/p ventral hernia w/ mesh in November 2016 Plan: - CT scan PO contrast - attempt to reduce ventral hernia in the ED - No heavy lifting - f/u outpatient in clinic with Dr. Marco daniel from the ED D/W Dr. Marco Fuchs PGY1
[2017-02-09 23:20] LABS: HEMOGLOBIN 13.8 gm/dL (14.0-18.0); MEAN CELL VOLUME 89.5 fL (80.0-105.0); MEAN CORPUSCULAR HEMOGLOBIN 30.3 pg (25.0-35.0); MEAN CORPUSCULAR HGB CONC 33.9 g/dl (31.0-37.0); MEAN PLATELET VOLUME 8.8 fl (7.0-11.0); RBC 4.55 10^6/uL (3.5-6.1); RED CELL DISTRIBUTION WIDTH 12.9 % (11.5-14.5); WHITE BLOOD COUNT 8.9 10^3/ul (4.5-11.0)
[2017-02-09 23:31] LABS: ALB/GLOB RATIO 1.2 (1.1-1.8); ALBUMIN 4.3 g/dL (3.0-4.8); ALT/SGPT 64 U/L (7-56); AST/SGOT 31 U/L (15-59); BLOOD UREA NITROGEN 17 mg/dL (7-21); CALCIUM 9.4 mg/dL (8.4-10.5); GFR AFRICAN-AMERICAN > 60; GFR NON-AFRICAN AMERICAN > 60
[2017-02-10] MEDS ORDERED: Morphine 4 mg/ml ISec IVP STA
[2017-02-10] MEDS ORDERED: Iohexol 350 MG/100 ML VIAL ONE (01:02)
[2017-02-10] MEDS ORDERED: HYDROmorphone 1 mg/ml ISec IVP STA ×2 (01:07→03:03)
--- NOTE | 2017-02-10 02:21 | CT ---
EXAM: CT Abdomen and Pelvis With Intravenous Contrast CLINICAL HISTORY: 36 years old, male; Pain; Abdominal pain; Generalized; Additional info: Abdominal pain/distension TECHNIQUE: Axial computed tomography images of the abdomen and pelvis with intravenous contrast. This CT exam was performed using one or more of the following dose reduction techniques: automated exposure control, adjustment of the mA and/or kV according to patient size, and/or use of iterative reconstruction technique. Coronal and sagittal reformatted images were created and reviewed. CONTRAST: 96 mL of OMNI 350 administered intravenously. COMPARISON: CT - ABD PELVIS W/O PO OR IV CONT 12/03/2016 10:53:42 PM FINDINGS: Lower thorax: No acute findings. ABDOMEN: Liver: Fatty infiltration. Gallbladder and bile ducts: No calcified stones. No ductal dilation. Pancreas: No ductal dilation. No mass. Spleen: No splenomegaly. Adrenals: No mass. Kidneys and ureters: Too small to characterize lesion within LEFT kidney. No hydronephrosis. Stomach and bowel: Postsurgical changes of sigmoid colon. Few scattered diverticula within colon. No associated inflammatory stranding. No definite mural thickening. No obstruction. Appendix: No findings to suggest acute appendicitis. PELVIS: Bladder: Unremarkable. Reproductive: Unremarkable as visualized. ABDOMEN and PELVIS: Intraperitoneal space: No significant fluid collection. No free air. Bones/joints: No acute fracture. Soft tissues: Eventration midline anterior abdominal wall, incompletely imaged. 7.0 x 10.7 x 2.0 cm peripherally enhancing fluid collection subjacent to midline anterior abdominal wall. Vasculature: Unremarkable. No aneurysm. Lymph nodes: No pathologically enlarged lymph nodes. IMPRESSION: 1. Fluid collection subjacent to anterior abdominal wall. DDX: Seroma, hematoma, abscess. Clinical correlation is needed. 2. Incidental/non-acute findings are described above.
[2017-02-10 02:59] VITALS: BP 122/76; PULSE 91; TEMP 97.5; O2SAT 94
[2017-02-10] MEDS ORDERED: Oxycodone/Acetaminophen 5/325 mg Tab PO PRN (03:20)
[2017-02-10] MEDS ORDERED: Sodium Chloride 0.9% 1,000 ML IV STA ×2 (03:20→03:47)
== END 2017-02-10 04:00 | disposition left against medical advice (07) ==
LOC: ED 20:57 → ERH 02-10 03:15 → UNDOADMOB 02-10 03:15 → ERH 02-10 03:43
DX: K43.9 Ventral hernia without obstruction or gangrene (principal); Z98.0 Intestinal bypass and anastomosis status; E78.5 Hyperlipidemia, unspecified; E11.9 Type 2 diabetes mellitus without complications
CPT/HCPCS: 74177; 80053; 85027; 96374; 96375; 96376; 99283; J1170; J2270; J7040; Q9966; Q9967

== ENCOUNTER 2017-04-09 20:52 | Observation (INO) | payer MEDICAID ==
[2017-04-09 21:00] VITALS: PULSE 115; RESP 20; TEMP 98; O2SAT 97; BMI 43.9
[2017-04-09] MEDS ORDERED: Morphine 4 mg/ml ISec IVP STA (21:26)
[2017-04-09] MEDS ORDERED: Sodium Chloride 0.9% 1,000 ML IV STA (21:26)
--- NOTE | 2017-04-09 21:29 | ED PDOC ---
Arrival/HPI - General Historian: Patient - History of Present Illness Time/Duration: 1 week Symptom Course: Worsening Quality: Other Context: Home <Mateo Anthony - Last Filed: 04/09/17 23:24> <JdmaryMilo - Last Filed: 04/10/17 01:21> - General Chief Complaint: Abdominal Pain Time Seen by Provider: 04/09/17 21:08 - History of Present Illness Narrative History of Present Illness (Text): 04/09/17 21:24 A 36 year old male, whose past medical history includes diabetes, hypertension, hernia repair on 12/10/16, diverticulitis, and sigmoid colon resection, presents to the emergency department complaining of worsening abdominal pain over the past week. Patient notes mild nausea and diaphoresis. He denies any fever, chills, vomiting, diarrhea, constipation, hematochezia, chest pain, shortness of breath or any other complaints. Patients PMD is located in [place]. (Mateo Anthony) Past Medical History - Provider Review Nursing Documentation Reviewed: Yes - Infectious Disease Hx of Infectious Diseases: None (Diverticulitis, sigmoid colon resection with anastomosis, ventral hernia repair (12/10/16)) - Tetanus Immunization Tetanus Immunization: Unknown - Cardiac Hx Cardiac Disorders: No - Pulmonary Hx Respiratory Disorders: No - Neurological Hx Neurological Disorder: No - HEENT Hx HEENT Disorder: No - Renal Hx Renal Disorder: No - Endocrine/Metabolic Hx Endocrine Disorders: No - Hematological/Oncological Hx Blood Transfusions: No Hx Blood Transfusion Reaction: No - Integumentary Hx Dermatological Disorder: No - Musculoskeletal/Rheumatological Hx Musculoskeletal Disorders: No Hx Falls: No - Gastrointestinal Hx Gastrointestinal Disorders: Yes Hx Diverticulitis: Yes Other/Comment: incisional abscess, sigmoid colon resection january 2016 - Genitourinary/Gynecological Hx Genitourinary Disorders: No - Psychiatric Hx Psychophysiologic Disorder: No Hx Substance Use: No (DENIES) - Past Surgical History Past Surgical History: No Previous - Surgical History Other/Comment: Sigmoid colon resection on 02/24/2016. incisional abscess multiple complications. Abd hernia mesh sx - Anesthesia Hx Anesthesia: Yes Hx Anesthesia Reactions: No Hx Malignant Hyperthermia: No - Suicidal Assessment Feels Threatened In Home Enviroment: No <Mateo Anthony - Last Filed: 04/09/17 23:24> Family/Social History - Physician Review Nursing Documentation Reviewed: Yes Family/Social History: No Known Family HX Smoking Status: Heavy Smoker > 10 Cigarettes Daily Hx Alcohol Use: Yes (social) Hx Substance Use: No (DENIES) Hx Substance Use Treatment: Yes <Pedro Luis Anthonyo Aziza - Last Filed: 04/09/17 23:24> Allergies/Home Meds <Pedro Luis Anthonynazia Ervin - Last Filed: 04/09/17 23:24> <JdmaryMiol - Last Filed: 04/10/17 01:21> Allergies/Adverse Reactions: Allergies erythromycin base Allergy (Verified 04/09/17 21:00) RASH Penicillins Allergy (Verified 04/09/17 21:00) RASH venom-honey bee [bee venom (honey bee)] Allergy (Verified 04/09/17 21:00) ANAPHYLAXIS Home Medications: Home Meds Medication Instructions Recorded Confirmed No Known Home Med 04/09/17 04/09/17 Review of Systems - Physician Review All systems were reviewed & negative as marked: Yes - Review of Systems Constitutional: absent: Fevers, Night Sweats Respiratory: absent: SOB Cardiovascular: absent: Chest Pain Gastrointestinal: Abdominal Pain, Nausea. absent: Constipation, Diarrhea, Vomiting, Hematochezia Endocrine: Diaphoresis <Pedro Luis Anthonyo Aziza - Last Filed: 04/09/17 23:24> Physical Exam Vital Signs Reviewed: Yes Temperature: Afebrile Blood Pressure: Normal Pulse: Tachycardic Respiratory Rate: Normal Appearance: Positive for: Well-Appearing, Non-Toxic, Uncomfortable Pain Distress: None Mental Status: Positive for: Alert and Oriented X 3 - Systems Exam Head: Present: Atraumatic, Normocephalic Pupils: Present: PERRL Extroacular Muscles: Present: EOMI Conjunctiva: Present: Normal Mouth: Present: Moist Mucous Membranes Neck: Present: Normal Range of Motion Respiratory/Chest: Present: Clear to Auscultation, Good Air Exchange. No: Respiratory Distress, Accessory Muscle Use Cardiovascular: Present: Regular Rate and Rhythm, Normal S1, S2. No: Murmurs Abdomen: Present: Tenderness (Tenderness around area surrounding hernia), Normal Bowel Sounds, Hernias (Ventral hernia, non-reducible). No: Distention, Peritoneal Signs Back: Present: Normal Inspection Upper Extremity: Present: Normal Inspection. No: Cyanosis, Edema Lower Extremity: Present: Normal Inspection. No: Edema Neurological: Present: GCS=15, CN II-XII Intact, Speech Normal Skin: Present: Warm, Dry, Normal Color. No: Rashes Psychiatric: Present: Alert, Oriented x 3, Normal Insight, Normal Concentration <GabrielleMateo L - Last Filed: 04/09/17 23:24> Medical Decision Making - Lab Interpretations I have reviewed the lab results: Yes <GabrielleMateo L - Last Filed: 04/09/17 23:24> <Milo Hernandez - Last Filed: 04/10/17 01:21> ED Course and Treatment: 04/09/17 21:24 Impression: A 36 year old male with abdominal pain surrounding hernia. Differential Diagnosis included but are not limited to: Ventral hernia Plan: -- Abdomen and pelvis CT -- Labs -- Morphine and IV fluids -- Reassess and disposition (Mateo Anthony) - Medication Orders Current Medication Orders: Sodium Chloride (Sodium Chloride 0.9%) 1,000 mls @ 100 mls/hr IV .Q10H STA Stop: 04/10/17 07:25 Last Admin: 04/09/17 21:45 Dose: 100 mls/hr Discontinued Medications Hydromorphone HCl (Dilaudid) 1 mg IVP STAT STA Stop: 04/09/17 22:37 Last Admin: 04/09/17 23:08 Dose: 1 mg Re-Assess: [facility] Pain Assessment Document 04/10/17 00:08 SC (Rec: 04/10/17 00:51 SC [id number]) Pain Reassessment Is this a pain reassessment? Yes Sleep Is patient sleeping during reassessment? No Presence of Pain Presence of Pain Yes Description Description Constant Intensity of Pain at present 4 Iohexol (Omnipaque 240 (50 Ml)) Confirm Administered Dose 50 ml .ROUTE .STK-MED ONE Stop: 04/09/17 21:35 Last Admin: 04/09/17 22:00 Dose: 50 ml Comments: Given by technical system analyst Ketorolac Tromethamine (Toradol) 30 mg IVP STAT STA Stop: 04/10/17 00:49 Morphine Sulfate (Morphine) 4 mg IVP STAT STA Stop: 04/09/17 21:27 Last Admin: 04/09/17 22:24 Dose: 4 mg Re-Assess: HANNY Pain Assessment Document 04/09/17 23:24 SC (Rec: 04/10/17 00:51 SC [id number]) Pain Reassessment Is this a pain reassessment? Yes Sleep Is patient sleeping during reassessment? No Presence of Pain Presence of Pain Yes Pain Scale Used Pain Scale Used Numeric Description Description Constant Intensity of Pain at present 6 ED OBSERVATION Date of observation admission: 04/09/17 Time of observation admission: 21:26 <Mateo Anthony - Last Filed: 04/09/17 23:24> Discharge: Yes <Milo Hernandez - Last Filed: 04/10/17 01:21> - Observation admission statement Patient is being placed in observation because:: Abdominal pain (Mateo Anthony) - Goals of Observation Goals of observation are:: Monitor and treat patients symptoms (Mateo Anthony) - Progress Note Progress Note: 04/09/17 21:26 Patient with abdominal pain surrounding hernia. 04/09/17 22:37 Patient continues to have pain. Will give Dilaudid IV. 04/09/17 23:24 Case signed out to Dr. Hernandez to follow up labs, CT, reevaluate and disposition. (Mateo Anthony) 04/09/17 23:25: Sign out from day shift. Patient with ventral hernia pending CT results, reevaluation, and disposition. 04/10/17 00:48: Patient still complaining abdominal pain. 04/10/17 01:16 IMPRESSION: 1. No bowel obstruction. 2. Fluid collection subjacent to anterior abdominal wall, decreased in size. DDX : Seroma, hematoma, abscess. Clinical correlation is needed. 3. Groundglass opacity, nonspecific. Clinical correlation is needed. 4. Incidental/non-acute findings are described above. Dictated and Authenticated by: Sridhar Shelby MD pt refusing further evaluation and treatment ambulating with steady gait received dilaudid, but is currently clinically sober The patient refuses admission and wishes to leave the Emergency Department against my medical advice. Patient was told that admission to the hospital is necessary and a full explanation of the reasons why was given, and understood by patient. The risks of leaving were explained and include worsening of condition, and permanent disability and from an undiagnosed or untreated condition. The patient accepts these risks, and is in my judgment is competent and capable of understanding the clinical situation and my explanation of the risks of leaving. Patient was given the opportunity to ask questions and change mind. The patient was instructed regarding the best care for the present symptoms, and to follow up with Dr. Lara as soon as possible, or return to the Emergency Department at any time for continuing care. Patient pulled out his IV line states does not want any dc paperwork (Milo Hernandez) - Scribe Statement The provider has reviewed the documentation as recorded by the Scribe <Mateo Anthony - Last Filed: 04/09/17 23:24> <Milo Hernandez - Last Filed: 04/10/17 01:21> - Scribe Statement Regi Kinney Provider Scribe Attestation: All medical record entries made by the Scribe were at my direction and personally dictated by me. I have reviewed the chart and agree that the record accurately reflects my personal performance of the history, physical exam, medical decision making, and the department course for this patient. I have also personally directed, reviewed, and agree with the discharge instructions and disposition. (Mateo Anthony) Disposition/Present on Arrival - Present on Arrival History of DVT/PE: No History of Uncontrolled Diabetes: No Urinary Catheter: No History of Decub. Ulcer: No History Surgical Site Infection Following: None <Mateo Anthony - Last Filed: 04/09/17 23:24> - Present on Arrival Any Indicators Present on Arrival: No - Disposition Have Diagnosis and Disposition been Completed?: Yes Disposition Time: 01:21 <Milo Hernandez - Last Filed: 04/10/17 01:21> - Disposition Diagnosis: Abdominal pain Disposition: AGAINST MEDICAL ADVICE Condition: FAIR
[2017-04-09] MEDS ORDERED: Iohexol 240 (50 ml) ONE (21:34)
[2017-04-09 22:07] LABS: EOS # 0.1 (0.0-0.7); EOS % 0.9 % (1.5-5.0); GRAN # 5.06 (1.4-6.5); HEMATOCRIT 43.1 % (42.0-52.0); LYMPH # 2.2 (1.2-3.4); LYMPH % 28.1 % (22.0-35.0); MEAN CORPUSCULAR HGB CONC 33.6 g/dl (31.0-37.0); MEAN PLATELET VOLUME 8.7 fl (7.0-11.0); MONO # 0.5 (0.1-0.6); RED CELL DISTRIBUTION WIDTH 13.3 % (11.5-14.5); WHITE BLOOD COUNT 7.8 10^3/ul (4.5-11.0)
[2017-04-09 22:15] LABS: ALB/GLOB RATIO 1.3 (1.1-1.8); ALKALINE PHOSPHATASE 89 U/L (38-126); ALT/SGPT 73 U/L (7-56); AST/SGOT 35 U/L (17-59); BILIRUBIN,TOTAL 0.3 mg/dL (0.2-1.3); BLOOD UREA NITROGEN 16 mg/dL (7-21); CALCIUM 9.3 mg/dL (8.4-10.5); CARBON DIOXIDE 26 mmol/L (21-33); CHLORIDE 105 mmol/L (98-107); GFR AFRICAN-AMERICAN > 60; GLUCOSE,RANDOM 130 mg/dL (70-110); LIPASE 67 U/L (23-300); POTASSIUM 4.2 mmol/L (3.6-5.0); SODIUM 142 mmol/L (132-148); TOTAL PROTEIN 7.6 g/dL (5.8-8.3)
[2017-04-09 22:16] LABS: INR 0.98 (0.93-1.08); PARTIAL THROMBOPLASTIN TIME 26.8 Seconds (23.7-30.8)
[2017-04-09] MEDS ORDERED: HYDROmorphone 1 mg/ml ISec IVP STA (22:36)
[2017-04-09 23:11] VITALS: BP 123/65
[2017-04-10] MEDS ORDERED: Iohexol 350 MG/100 ML VIAL ONE (00:14)
--- NOTE | 2017-04-10 01:04 | CT ---
EXAM: CT Abdomen and Pelvis With Intravenous Contrast CLINICAL HISTORY: 36 years old, male; Pain; Abdominal pain; Generalized; Additional info: Abd pain/ventral hernia R/O obstruction TECHNIQUE: Axial computed tomography images of the abdomen and pelvis with intravenous contrast. All CT scans at this facility use one or more dose reduction techniques, viz.: automated exposure control; ma/kV adjustment per patient size (including targeted exams where dose is matched to indication; i.e. head); or iterative reconstruction technique. Coronal and sagittal reformatted images were created and reviewed. CONTRAST: 96 mL of OMNI 350 administered intravenously. COMPARISON: CT - ABD PELVIS PO IV CONTRAST 02/10/2017 1:17:46 AM FINDINGS: Lower thorax: Minimal ground glass opacity medial RIGHT lower lobe. ABDOMEN: Liver: Fatty infiltration. Gallbladder and bile ducts: No calcified stones. No ductal dilation. Pancreas: Small fat density lesion within pancreas, no significance. No ductal dilation. Spleen: No splenomegaly. Adrenals: No mass. Kidneys and ureters: Too small to characterize lesion within LEFT kidney. No hydronephrosis. Stomach and bowel: Postsurgical changes of sigmoid colon. Few scattered diverticula within colon. No associated inflammatory stranding. No definite mural thickening. No obstruction. Appendix: No findings to suggest acute appendicitis. PELVIS: Bladder: Unremarkable. Reproductive: Unremarkable as visualized. ABDOMEN and PELVIS: Intraperitoneal space: No significant fluid collection. No free air. Bones/joints: No acute fracture. Soft tissues: Mild eventration of midline anterior abdominal wall. 8.5 x 1.8 x 7.0 cm fluid collection subjacent to anterior abdominal wall, slightly decreased in size. Laparotomy scar. Vasculature: Unremarkable. No aneurysm. Lymph nodes: No pathologically enlarged lymph nodes. IMPRESSION: 1. No bowel obstruction. 2. Fluid collection subjacent to anterior abdominal wall, decreased in size. DDX: Seroma, hematoma, abscess. Clinical correlation is needed. 3. Groundglass opacity, nonspecific. Clinical correlation is needed. 4. Incidental/non-acute findings are described above.
== END 2017-04-10 01:21 | disposition home or self-care (01) ==
LOC: ED 20:52 → EROBSV 21:26
PROVIDERS: ADMIT Emergency Medicine; ATTEND Emergency Medicine
DX: R10.9 Unspecified abdominal pain (principal); I10 Essential (primary) hypertension; E11.9 Type 2 diabetes mellitus without complications
CPT/HCPCS: 36415; 74177; 80053; 83690; 85025; 85610; 85730; 86850; 86900; 96361; 96374; 96375; 99284; G0378; J1170; J1885; J2270; J7040; Q9966; Q9967

== ENCOUNTER 2017-06-10 00:30 | Emergency (ER) | payer MEDICAID ==
[2017-06-10 00:36] VITALS: BMI 47.2
[2017-06-10 00:46] VITALS: TEMP 98.2
[2017-06-10] MEDS ORDERED: HYDROmorphone 1 mg/ml ISec IVP STA ×2 (01:06→02:35)
[2017-06-10] MEDS ORDERED: Sodium Chloride 0.9% 1,000 ML IV STA (01:06)
--- NOTE | 2017-06-10 01:11 | ED PDOC ---
Arrival/HPI - General Chief Complaint: Abdominal Pain Time Seen by Provider: 06/10/17 00:37 Historian: Patient - History of Present Illness Narrative History of Present Illness (Text): 06/10/17 01:10 A 36 year old male, whose past medical history includes hypertension, hernia repair on 12/10/16, diverticulitis, sigmoid colon resection and diabetes, presents to the emergency department complaining of abdominal pain. Patient reports he saw Dr. Lara a month ago, who advised weight loss in order for 2nd repair of his ventral hernia to be done. Patient has had a hx. of chronic intermittent pain since his past surgery a year ago.He has a chronic ventral hernia.Denies any hx. of vomiting.No loss of appetite.No hx. of any fever.No other complaints at this time. Symptom Onset: Sudden Symptom Course: Unchanged Activities at Onset: Rest Context: Home Past Medical History - Provider Review Nursing Documentation Reviewed: Yes - Infectious Disease Hx of Infectious Diseases: None (Diverticulitis, sigmoid colon resection with anastomosis, ventral hernia repair (12/10/16)) - Tetanus Immunization Tetanus Immunization: Unknown - Cardiac Hx Cardiac Disorders: No - Pulmonary Hx Respiratory Disorders: No - Neurological Hx Neurological Disorder: No - HEENT Hx HEENT Disorder: No - Renal Hx Renal Disorder: No - Endocrine/Metabolic Hx Endocrine Disorders: No - Hematological/Oncological Hx Blood Transfusions: No Hx Blood Transfusion Reaction: No - Integumentary Hx Dermatological Disorder: No - Musculoskeletal/Rheumatological Hx Musculoskeletal Disorders: No Hx Falls: No - Gastrointestinal Hx Gastrointestinal Disorders: Yes Hx Diverticulitis: Yes Other/Comment: incisional abscess, sigmoid colon resection january 2016 - Genitourinary/Gynecological Hx Genitourinary Disorders: No - Psychiatric Hx Psychophysiologic Disorder: No Hx Substance Use: No (DENIES) - Past Surgical History Past Surgical History: No Previous - Surgical History Other/Comment: Sigmoid colon resection on 02/24/2016. incisional abscess multiple complications. Abd hernia mesh sx - Anesthesia Hx Anesthesia: Yes Hx Anesthesia Reactions: No Hx Malignant Hyperthermia: No - Suicidal Assessment Feels Threatened In Home Enviroment: No Family/Social History - Physician Review Nursing Documentation Reviewed: Yes Family/Social History: No Known Family HX Smoking Status: Heavy Smoker > 10 Cigarettes Daily Hx Alcohol Use: Yes (social) Frequency of alcohol use: Socially Hx Substance Use: No (DENIES) Hx Substance Use Treatment: Yes Allergies/Home Meds Allergies/Adverse Reactions: Allergies erythromycin base Allergy (Verified 06/10/17 00:46) RASH Penicillins Allergy (Verified 06/10/17 00:46) RASH venom-honey bee [bee venom (honey bee)] Allergy (Verified 06/10/17 00:46) ANAPHYLAXIS Home Medications: Home Meds Medication Instructions Recorded Confirmed No Known Home Med 04/09/17 06/10/17 Review of Systems - Physician Review All systems were reviewed & negative as marked: Yes - Review of Systems Constitutional: absent: Fevers Gastrointestinal: Abdominal Pain Physical Exam Vital Signs Reviewed: Yes Vital Signs Temp Pulse Resp BP Pulse Ox 06/10/17 05:00 88 16 124/80 98 06/10/17 03:45 96 H 16 120/59 L 95 06/10/17 02:28 91 H 18 135/69 97 06/10/17 00:46 98.2 F 06/10/17 00:41 104 H 18 130/81 98 Blood Pressure: Normal Pulse: Regular Respiratory Rate: Normal Appearance: Positive for: Well-Appearing, Non-Toxic, Comfortable Pain Distress: None Mental Status: Positive for: Alert and Oriented X 3 - Systems Exam Head: Present: Atraumatic, Normocephalic Pupils: Present: PERRL Extroacular Muscles: Present: EOMI Conjunctiva: Present: Normal Mouth: Present: Moist Mucous Membranes Neck: Present: Normal Range of Motion Respiratory/Chest: Present: Clear to Auscultation, Good Air Exchange. No: Respiratory Distress, Accessory Muscle Use Cardiovascular: Present: Regular Rate and Rhythm, Normal S1, S2. No: Murmurs Abdomen: Present: Normal Bowel Sounds, Hernias (ventral hernia, with minimal palpable tenderness). No: Peritoneal Signs, Rebound, Guarding Back: Present: Normal Inspection Upper Extremity: Present: Normal Inspection. No: Cyanosis, Edema Lower Extremity: Present: Normal Inspection. No: Edema Neurological: Present: GCS=15, CN II-XII Intact, Speech Normal, Motor Func Grossly Intact, Normal Sensory Function Skin: Present: Warm, Dry, Normal Color. No: Rashes Psychiatric: Present: Alert, Oriented x 3, Normal Insight, Normal Concentration Medical Decision Making ED Course and Treatment: 06/10/17 01:07 Impression: A 36 year old male with ventral hernia, presents to emergency department complaining of abdominal pain. Plan: -- CT abd/pelvis -- labs -- Dilaudid, IV fluids, Zofran -- Reassess and disposition Prior Visits: Notes and results from previous visits were reviewed. Patient was last seen in the emergency department on 04/09/17 for evaluation of abdominal pain. Patient left the emergency department against medical advice. Progress Notes: CT Abdomen and Pelvis With Intravenous Contrast FINDINGS: Lower thorax: The bilateral lung bases are clear. ABDOMEN: Liver: The liver is enlarged and demonstrates diffuse fatty infiltration. Gallbladder and bile ducts: The gallbladder is decompressed. No calcified stones. No significant intra- or extrahepatic biliary ductal dilation. Pancreas: Stable subcentimeter focus of fat attenuation within the body of the pancreas. The pancreas otherwise enhances homogeneously. No ductal dilation. No discrete mass. Spleen: No acute findings. Adrenals: No acute findings. Kidneys and ureters: No acute findings. No hydronephrosis or renal calculi. No discrete solid mass. PELVIS: Bladder: No acute findings. Reproductive: No acute findings. Appendix: The appendix is not definitively visualized, however no pericecal inflammatory change is identified to suggest the presence of acute appendicitis. ABDOMEN and PELVIS: Stomach and bowel: Eventration of the anterior-abdominal wall. No obstruction. No mucosal thickening. Postoperative change within the sigmoid colon. Peritoneum: No significant fluid collection. No free air. Lymph nodes: No pathologically enlarged lymph nodes. Vasculature: Unremarkable. Bones: No acute fracture. IMPRESSION: Stable eventration of the anterior abdominal wall without obstruction. No acute intra-abdominal pathology, as detailed above. Dictated and Authenticated by: Marguerite Correa MD 06/10/2017 4:22 AM Eastern Time ([place] & [place]) 06/10/17 05:11 Patient is pain free in emergency department. Was seen by surgical training specialist, who agrees with findings and for patient to be discharged for follow up with Dr. Lara this week. - Lab Interpretations Lab Results: 06/10/17 01:25 06/10/17 01:25 Lab Results 06/10/17 01:25: WBC 7.3, RBC 4.65, Hgb 14.4, Hct 42.4, MCV 91.2, MCH 31.0, MCHC 34.0, RDW 13.3, Plt Count 284, MPV 9.2 06/10/17 01:25: Sodium 141, Potassium 4.3, Chloride 104, Carbon Dioxide 28, Anion Gap 13, BUN 22 H, Creatinine 0.8, Est GFR ( Amer) > 60, Est GFR ( Non-Af Amer) > 60, Random Glucose 100, Calcium 9.3, Total Bilirubin 0.6, AST 42 , ALT 88 H, Alkaline Phosphatase 80, Total Protein 7.7, Albumin 4.2, Globulin 3.5, Albumin/Globulin Ratio 1.2, Lipase 61 I have reviewed the lab results: Yes - RAD Interpretation Radiology Orders: 06/10/17 01:05 ABD PELVIS PO & IV CONTRAST [CT] Stat - Medication Orders Current Medication Orders: Discontinued Medications Hydromorphone HCl (Dilaudid) 1 mg IVP STAT STA Stop: 06/10/17 01:07 Last Admin: 06/10/17 01:35 Dose: 1 mg MAR Pain Assessment Document 06/10/17 01:35 CNR (Rec: 06/10/17 01:35 CNR [id number]) Pain Reassessment Is this a pain reassessment? Yes IVP Administration Document 06/10/17 01:35 CNR (Rec: 06/10/17 01:35 CNR [id number]) Charges for Administration # of IVP Administrations 1 Hydromorphone HCl (Dilaudid) 1 mg IVP STAT STA Stop: 06/10/17 02:36 Last Admin: 06/10/17 02:44 Dose: 1 mg MAR Pain Assessment Document 06/10/17 02:44 CNR (Rec: 06/10/17 02:44 CNR [id number]) Pain Reassessment Is this a pain reassessment? Yes IVP Administration Document 06/10/17 02:44 CNR (Rec: 06/10/17 02:44 CNR [id number]) Charges for Administration # of IVP Administrations 1 Hydromorphone HCl (Dilaudid) 2 mg IVP STAT STA Stop: 06/10/17 03:51 Last Admin: 06/10/17 04:02 Dose: 2 mg MAR Pain Assessment Document 06/10/17 04:02 CNR (Rec: 06/10/17 04:03 CNR [id number]) Pain Reassessment Is this a pain reassessment? Yes Location Pain Location Body Site Abdomen Description Description Constant IVP Administration Document 06/10/17 04:02 CNR (Rec: 06/10/17 04:03 CNR [id number]) Charges for Administration # of IVP Administrations 1 Sodium Chloride (Sodium Chloride 0.9%) 1,000 mls @ 999 mls/hr IV .Q1H1M STA Stop: 06/10/17 02:06 Last Admin: 06/10/17 01:36 Dose: 999 mls/hr eMAR Start Stop Document 06/10/17 01:36 CNR (Rec: 06/10/17 01:38 CNR [id number]) Intravenous Solution Start Date 06/10/17 Start Time 01:38 Ondansetron HCl (Zofran Inj) 4 mg IVP ONCE ONE Stop: 06/10/17 01:07 Last Admin: 06/10/17 01:35 Dose: 4 mg IVP Administration Document 06/10/17 01:35 CNR (Rec: 06/10/17 01:35 CNR [id number]) Charges for Administration # of IVP Administrations 1 - Scribe Statement The provider has reviewed the documentation as recorded by the Barb Ivy Provider Scribe Attestation: All medical record entries made by the Scribe were at my direction and personally dictated by me. I have reviewed the chart and agree that the record accurately reflects my personal performance of the history, physical exam, medical decision making, and the department course for this patient. I have also personally directed, reviewed, and agree with the discharge instructions and disposition. Disposition/Present on Arrival - Present on Arrival Any Indicators Present on Arrival: No History of DVT/PE: No History of Uncontrolled Diabetes: No Urinary Catheter: No History of Decub. Ulcer: No History Surgical Site Infection Following: None - Disposition Have Diagnosis and Disposition been Completed?: Yes Diagnosis: Abdominal pain, Abdominal hernia Disposition: HOME/ ROUTINE Disposition Time: 05:11 Patient Plan: Discharge Condition: STABLE Additional Instructions: Follow up with this week/Any recurrent persistent pain return to the emergency room Referrals: Moshe Saleem, [Primary Care Provider] - Follow up with primary Forms: [employer] ([place])
[2017-06-10] MEDS ORDERED: Iohexol 240 (50 ml) ONE (01:22)
[2017-06-10 01:47] LABS: BILIRUBIN,TOTAL 0.6 mg/dL (0.2-1.3); CALCIUM 9.3 mg/dL (8.4-10.5); CARBON DIOXIDE 28 mmol/L (21-33); GFR AFRICAN-AMERICAN > 60; GLUCOSE,RANDOM 100 mg/dL (70-110); LIPASE 61 U/L (23-300)
[2017-06-10 01:57] LABS: HEMATOCRIT 42.4 % (42.0-52.0); MEAN CELL VOLUME 91.2 fl (80.0-105.0); MEAN PLATELET VOLUME 9.2 fl (7.0-11.0); RED CELL DISTRIBUTION WIDTH 13.3 % (11.5-14.5); WHITE BLOOD COUNT 7.3 10^3/ul (4.5-11.0)
[2017-06-10 02:11] LABS: ALB/GLOB RATIO 1.2 (1.1-1.8); ALKALINE PHOSPHATASE 80 U/L (38-126); ALT/SGPT 88 U/L (7-56); AST/SGOT 42 U/L (17-59); BLOOD UREA NITROGEN 22 mg/dL (7-21); CHLORIDE 104 mmol/L (98-107); POTASSIUM 4.3 mmol/L (3.6-5.0); SODIUM 141 mmol/L (132-148); TOTAL PROTEIN 7.7 g/dL (5.8-8.3)
[2017-06-10] MEDS ORDERED: Iohexol 350 MG/100 ML VIAL ONE (03:24)
[2017-06-10 03:50] VITALS: RESP 16
[2017-06-10] MEDS ORDERED: HYDROmorphone 2 mg/ml ISec IVP STA (03:50)
--- NOTE | 2017-06-10 04:23 | CT ---
EXAM: CT Abdomen and Pelvis With Intravenous Contrast CLINICAL HISTORY: 36 years old, male; Pain; Abdominal pain; Generalized; Prior surgery; Surgery date: 1-6 months; Surgery type: Hernia TECHNIQUE: Axial computed tomography images of the abdomen and pelvis with intravenous contrast. All CT scans at this facility use one or more dose reduction techniques, viz.: automated exposure control; ma/kV adjustment per patient size (including targeted exams where dose is matched to indication; i.e. head); or iterative reconstruction technique. Coronal and sagittal reformatted images were created and reviewed. CONTRAST: 96 mL of OMNI 350 administered intravenously. COMPARISON: CT - ABD PELVIS PO IV CONTRAST 2017-04-10 00:15 FINDINGS: Lower thorax: The bilateral lung bases are clear. ABDOMEN: Liver: The liver is enlarged and demonstrates diffuse fatty infiltration. Gallbladder and bile ducts: The gallbladder is decompressed. No calcified stones. No significant intra- or extrahepatic biliary ductal dilation. Pancreas: Stable subcentimeter focus of fat attenuation within the body of the pancreas. The pancreas otherwise enhances homogeneously. No ductal dilation. No discrete mass. Spleen: No acute findings. Adrenals: No acute findings. Kidneys and ureters: No acute findings. No hydronephrosis or renal calculi. No discrete solid mass. PELVIS: Bladder: No acute findings. Reproductive: No acute findings. Appendix: The appendix is not definitively visualized, however no pericecal inflammatory change is identified to suggest the presence of acute appendicitis. ABDOMEN and PELVIS: Stomach and bowel: Eventration of the anterior-abdominal wall. No obstruction. No mucosal thickening. Postoperative change within the sigmoid colon. Peritoneum: No significant fluid collection. No free air. Lymph nodes: No pathologically enlarged lymph nodes. Vasculature: Unremarkable. Bones: No acute fracture. IMPRESSION: Stable eventration of the anterior abdominal wall without obstruction. No acute intra-abdominal pathology, as detailed above.
[2017-06-10 05:18] VITALS: BP 124/80; PULSE 88; O2SAT 98
--- NOTE | 2017-06-10 05:31 | CP.PCM.CON ---
History of Present Illness - History of Present Illness History of Present Illness: Surgery: Dr. Lara CC: abdominal pain, chronic HPI: Patient is a 36 y/o male w/ sign. hx for ventral incisional hernia repair w / Mesh in November presents with sharp stretching abdominal pain, rated as severe in nature in center of abdomen. Patient know to have diastasis recti at incision site. Patient states the pain comes on acute and then tends to resolve over the course of 3 days but likes to come to ER to get checked just in case. He has had similar pain in the past most recently March. Patient denies f/c/n/v. He reports + flatus and BM. Patient states he was seen in office by Dr. Lara in April. Operative plan discussed at that time. Patient states if he is able to lose 60lbs then surgery might be an option for him. States he has lost 30lbs since he last saw Dr. Lara. He states he does not want to be admitted to hospital and can follow up as outpatient. Pain resolved with dilaudid administration in ER. PMHX: obese, diverticulitis s/p sigmoidectomy PSH: sigmoidectomy w/ anastomosis, ventral incisional hernia repair with mesh Social: + tobacco use Review of Systems - Review of Systems All systems: reviewed and no additional remarkable complaints except Review of Systems: stated in HPI Past Patient History - Infectious Disease Hx of Infectious Diseases: None (Diverticulitis, sigmoid colon resection with anastomosis, ventral hernia repair (12/10/16)) - Tetanus Immunizations Tetanus Immunization: Unknown - Past Medical History & Family History Past Medical History?: Yes - Past Social History Smoking Status: Heavy Smoker > 10 Cigarettes Daily - CARDIAC Hx Cardiac Disorders: No - PULMONARY Hx Respiratory Disorders: No - NEUROLOGICAL Hx Neurological Disorder: No - HEENT Hx HEENT Problems: No - RENAL Hx Chronic Kidney Disease: No - ENDOCRINE/METABOLIC Hx Endocrine Disorders: No - HEMATOLOGICAL/ONCOLOGICAL Hx Blood Transfusions: No Hx Blood Transfusion Reaction: No - INTEGUMENTARY Hx Dermatological Problems: No - MUSCULOSKELETAL/RHEUMATOLOGICAL Hx Musculoskeletal Disorders: No Hx Falls: No - GASTROINTESTINAL Hx Gastrointestinal Disorders: Yes Hx Diverticulitis: Yes Other/Comment: incisional abscess, sigmoid colon resection january 2016 - GENITOURINARY/GYNECOLOGICAL Hx Genitourinary Disorders: No - PSYCHIATRIC Hx Psychophysiologic Disorder: No Hx Substance Use: No (DENIES) - SURGICAL HISTORY Other/Comment: Sigmoid colon resection on 02/24/2016. incisional abscess multiple complications. Abd hernia mesh sx - ANESTHESIA Hx Anesthesia: Yes Hx Anesthesia Reactions: No Hx Malignant Hyperthermia: No Meds Allergies/Adverse Reactions: Allergies Allergy/AdvReac Type Severity Reaction Status Date / Time erythromycin base Allergy RASH Verified 06/10/17 00:46 Penicillins Allergy RASH Verified 06/10/17 00:46 venom-honey bee Allergy ANAPHYLAXIS Verified 06/10/17 00:46 [bee venom (honey bee)] Physical Exam - Constitutional Appears: Non-toxic, No Acute Distress - Head Exam Head Exam: ATRAUMATIC, NORMOCEPHALIC - Eye Exam Eye Exam: EOMI, Normal appearance - ENT Exam ENT Exam: Mucous Membranes Moist - Respiratory Exam Respiratory Exam: NORMAL BREATHING PATTERN. absent: Respiratory Distress - Cardiovascular Exam Cardiovascular Exam: REGULAR RHYTHM. absent: Tachycardia - GI/Abdominal Exam GI & Abdominal Exam: Distended, Soft. absent: Guarding, Rebound, Rigid, Tenderness Additional comments: laparotomy incision midline well healed with evidence of diastasis with flexion of abdominal muscles. Completely resolves with lying flat. No overlying skin changes. Results - Vital Signs Recent Vital Signs: Last Vital Signs Temp 98.2 F 06/10/17 00:46 Pulse 88 06/10/17 05:00 Resp 16 06/10/17 05:00 BP 124/80 06/10/17 05:00 Pulse Ox 98 06/10/17 05:00 - Labs Result Diagrams: 06/10/17 01:25 06/10/17 01:25 Labs: Laboratory Results - last 24 hr 06/10/17 06/10/17 01:25 01:25 WBC 7.3 RBC 4.65 Hgb 14.4 Hct 42.4 MCV 91.2 MCH 31.0 MCHC 34.0 RDW 13.3 Plt Count 284 MPV 9.2 Sodium 141 Potassium 4.3 Chloride 104 Carbon Dioxide 28 Anion Gap 13 BUN 22 H Creatinine 0.8 Est GFR ( Amer) > 60 Est GFR (Non-Af Amer) > 60 Random Glucose 100 Calcium 9.3 Total Bilirubin 0.6 AST 42 ALT 88 H Alkaline Phosphatase 80 Total Protein 7.7 Albumin 4.2 Globulin 3.5 Albumin/Globulin Ratio 1.2 Lipase 61 Assessment & Plan - Assessment and Plan (Free Text) Assessment: 36 y/o male w/ chronic abdominal pain and distasis recti s/p ventral incisional hernia repair Plan: -patient chooses to go home, can f/u with Dr. Lara prn and keep appointment in Jul -cont diet plan for weight loss per Dr. Lara recommendations -no lifting greater than 20lbs -return if symptoms worsen or persists -surgical plan discussed and as planned by Dr. Lara for possible intervention if patient successfully meets weight loss goal -d/w Dr. Lara [facility] PGY3
== END 2017-06-10 05:18 | disposition home or self-care (01) ==
LOC: ED 00:30
DX: K46.9 Unspecified abdominal hernia without obstruction or gangrene (principal); R10.9 Unspecified abdominal pain; E11.9 Type 2 diabetes mellitus without complications; F17.210 Nicotine dependence, cigarettes, uncomplicated; I10 Essential (primary) hypertension; Z88.0 Allergy status to penicillin
CPT/HCPCS: 74177; 80053; 83690; 85027; 96374; 96375; 96376; 99284; J1170; J2405; J7040; Q9966; Q9967

== ENCOUNTER 2017-08-04 22:09 | Emergency (ER) | payer MEDICAID ==
[2017-08-04 22:11] VITALS: BMI 47.2
[2017-08-05 00:05] VITALS: BP 132/88; PULSE 100; RESP 20; TEMP 98.6; O2SAT 97
--- NOTE | 2017-08-05 00:19 | ED PDOC ---
Arrival/HPI <Saturnino Moss - Last Filed: 08/05/17 01:24> - General Historian: Patient - History of Present Illness Time/Duration: Other (see hpi) Context: Home <Serina Ceballos - Last Filed: 08/05/17 03:31> - General Chief Complaint: Abdominal Pain Time Seen by Provider: 08/05/17 00:17 - History of Present Illness Narrative History of Present Illness (Text): 08/05/17 00:10 Patient just arrived at his ED room. A 36 year old male, whose past medical history includes hypertension, hernia repair on 12/10/16, diverticulitis, sigmoid colon resection and diabetes, presents to the emergency department complaining of ventral hernia pain. Patient stated his hernia is bigger than last ED visit. Denies n/v/d. (Serina Ceballos) Past Medical History - Provider Review Nursing Documentation Reviewed: Yes - Infectious Disease Hx of Infectious Diseases: None (Diverticulitis, sigmoid colon resection with anastomosis, ventral hernia repair (12/10/16)) - Tetanus Immunization Tetanus Immunization: Unknown - Cardiac Hx Cardiac Disorders: No - Pulmonary Hx Respiratory Disorders: No - Neurological Hx Neurological Disorder: No - HEENT Hx HEENT Disorder: No - Renal Hx Renal Disorder: No - Endocrine/Metabolic Hx Endocrine Disorders: No - Hematological/Oncological Hx Blood Transfusions: No Hx Blood Transfusion Reaction: No - Integumentary Hx Dermatological Disorder: No - Musculoskeletal/Rheumatological Hx Musculoskeletal Disorders: No Hx Falls: No - Gastrointestinal Hx Gastrointestinal Disorders: Yes Hx Diverticulitis: Yes Other/Comment: incisional abscess, sigmoid colon resection january 2016 - Genitourinary/Gynecological Hx Genitourinary Disorders: No - Psychiatric Hx Psychophysiologic Disorder: No Hx Substance Use: No (DENIES) - Past Surgical History Past Surgical History: No Previous - Surgical History Hx Appendectomy: Yes Other/Comment: Sigmoid colon resection on 02/24/2016. incisional abscess multiple complications. Abd hernia mesh sx - Anesthesia Hx Anesthesia: Yes Hx Anesthesia Reactions: No Hx Malignant Hyperthermia: No - Suicidal Assessment Feels Threatened In Home Enviroment: No <Serina Ceballos - Last Filed: 08/05/17 03:31> Family/Social History - Physician Review Nursing Documentation Reviewed: Yes Family/Social History: Other (noncontributory) Smoking Status: Heavy Smoker > 10 Cigarettes Daily Hx Alcohol Use: Yes (social) Frequency of alcohol use: Socially Hx Substance Use: No (DENIES) Hx Substance Use Treatment: Yes <Serina Ceballos - Last Filed: 08/05/17 03:31> Allergies/Home Meds <Saturnino Moss - Last Filed: 08/05/17 01:24> <Serina Ceballos - Last Filed: 08/05/17 03:31> Allergies/Adverse Reactions: Allergies erythromycin base Allergy (Verified 08/05/17 00:06) RASH Penicillins Allergy (Verified 08/05/17 00:06) RASH venom-honey bee [bee venom (honey bee)] Allergy (Verified 08/05/17 00:06) ANAPHYLAXIS Home Medications: Home Meds Medication Instructions Recorded Confirmed No Known Home Med 04/09/17 08/05/17 Review of Systems - Review of Systems Constitutional: Normal. absent: Fatigue, Weight Change, Fevers Eyes: Normal ENT: Normal Respiratory: Normal Cardiovascular: Normal Gastrointestinal: Abdominal Pain. absent: Nausea, Vomiting Genitourinary Male: Normal. absent: Dysuria, Frequency Musculoskeletal: Normal. absent: Back Pain Skin: Normal. absent: Rash Neurological: Normal. absent: Headache, Dizziness Endocrine: Normal Hemo/Lymphatic: Normal Psychiatric: Normal <Serina Ceballos - Last Filed: 08/05/17 03:31> Physical Exam Temperature: Afebrile Blood Pressure: Normal Pulse: Regular Respiratory Rate: Normal Appearance: Positive for: Well-Appearing, Non-Toxic, Comfortable Pain Distress: None Mental Status: Positive for: Alert and Oriented X 3 - Systems Exam Head: Present: Atraumatic, Normocephalic Pupils: Present: PERRL Extroacular Muscles: Present: EOMI Conjunctiva: Present: Normal Mouth: Present: Moist Mucous Membranes Neck: Present: Normal Range of Motion Respiratory/Chest: Present: Clear to Auscultation, Good Air Exchange. No: Respiratory Distress, Accessory Muscle Use Cardiovascular: Present: Regular Rate and Rhythm, Normal S1, S2. No: Murmurs Abdomen: Present: Tenderness (mild tenderness over hernia area. hernia is approx. 10 cm, reducible), Normal Bowel Sounds, Hernias. No: Distention, Peritoneal Signs, Rebound, Guarding Back: Present: Normal Inspection Upper Extremity: Present: Normal Inspection, Normal ROM, NORMAL PULSES, Neurovascularly Intact, Capillary Refill < 2s. No: Cyanosis, Edema Lower Extremity: Present: Normal Inspection, Normal ROM. No: Edema Neurological: Present: GCS=15, CN II-XII Intact, Speech Normal Skin: Present: Warm, Dry, Normal Color. No: Rashes Psychiatric: Present: Alert, Oriented x 3, Normal Insight, Normal Concentration <Ceballos,Nahim P - Last Filed: 08/05/17 03:31> Vital Signs Temp Pulse Resp BP Pulse Ox 08/05/17 00:05 98.6 F 100 H 20 132/88 97 08/04/17 23:59 98.6 F 100 H 20 132/88 97 Medical Decision Making <Saturnino Moss - Last Filed: 08/05/17 01:24> Re-evaluation Time: 03:14 Reassessment Condition: Re-examined, Improved <Iesha Ceballosim P - Last Filed: 08/05/17 03:31> ED Course and Treatment: 08/05/17 03:13 Re-evaluation. Patient feels better. Discussed results and plan with patient who expresses understanding. All questions answered and there is agreement with the plan to discharge home with instructions. Patient stable for discharge. Return if symptoms persist or worsen. (Ceballos,Nahim P) - Lab Interpretations Lab Results: 08/05/17 01:05 08/05/17 01:05 Lab Results 08/05/17 01:05: Sodium 140, Potassium 4.6, Chloride 98, Carbon Dioxide 31, Anion Gap 15, BUN 13, Creatinine 0.9, Est GFR ( Amer) > 60, Est GFR (Non- Af Amer) > 60, Random Glucose 109, Calcium 9.6, Total Bilirubin 0.6, AST 61 H D , ALT 88 H, Alkaline Phosphatase 68, Total Protein 8.2, Albumin 4.6, Globulin 3.6, Albumin/Globulin Ratio 1.3, Lipase 37 08/05/17 01:05: WBC 8.3, RBC 4.70, Hgb 14.4, Hct 42.6, MCV 90.6, MCH 30.6, MCHC 33.8, RDW 12.9, Plt Count 253, MPV 9.0, Gran % 65.8, Lymph % (Auto) 28.0, [place] % (Auto) 5.5, Eos % (Auto) 0.7 L, Baso % (Auto) 0.0, Gran # 5.48, Lymph # 2.3, [place] # 0.5, Eos # 0.1, Baso # 0.00 - RAD Interpretation Narrative RAD Interpretations (Text): 08/05/17 03:13 [facility] Division of Radiology [address] [address] Tel. no. Patient Name: TITO LEE Pt. Address: [address] [place] [address]. Rec #: [id number] [place] [address]: Tucker BURNETT,Serina Villarreal Pt Order Location: ED : 1980 Male Age: 36 Order #: [id number] Reason for exam: abdominal pain CT Scan ABD PELVIS W/O PO OR IV CONT Exam Date: 08/05/17 This imaging exam was performed at [facility] EXAM: CT Abdomen and Pelvis Without Intravenous Contrast EXAM DATE/TIME: 08/05/2017 12:31 AM CLINICAL HISTORY: 36 years old, male; Pain; Abdominal pain; Generalized TECHNIQUE: Axial computed tomography images of the abdomen and pelvis without intravenous contrast. All CT scans at this facility use one or more dose reduction techniques, viz.: automated exposure control; ma/kV adjustment per patient size (including targeted exams where dose is matched to indication; i.e. head); or iterative reconstruction technique. Coronal and sagittal reformatted images were created and reviewed. COMPARISON: Prior CT of abdomen and pelvis of 2016-- FINDINGS: LOWER THORAX: No infiltrate seen in the lung bases. ABDOMEN: LIVER: Fatty infiltration of the liver. GALLBLADDER AND BILE DUCTS: No CT evidence of acute cholecystitis. No evidence of significant biliary ductal dilatation. PANCREAS: No CT evidence of acute pancreatitis. SPLEEN: No acute abnormality of the spleen identified. ADRENALS: 1.2 cm low-density left adrenal lesion, having a CT attenuation of less than 10 Hounsfield units on this noncontrast exam, most likely representing a benign adenoma. KIDNEYS AND URETERS: No acute abnormality of the kidneys seen. STOMACH AND BOWEL: See below. Colonic diverticulosis, with no evidence of acute diverticulitis. Surgical suture line/surgical anatomosis is noted in the sigmoid colon. Otherwise, no significant abnormality of the bowel is identified. No evidence of bowel obstruction. APPENDIX: Normal appendix is not seen, however, there are no significant inflammatory changes visualized in the expected location of the appendix to suggest appendicitis. Recommend clinical correlation. PELVIS: BLADDER: No acute abnormality of the bladder identified. REPRODUCTIVE: No acute abnormality of the reproductive organs is seen. ABDOMEN and PELVIS: INTRAPERITONEAL SPACE: No evidence of free intraperitoneal air or fluid. BONES/JOINTS: No acute fractures or other acute bony abnormality noted. SOFT TISSUES: Evidence of previous hernia repair in the anterior pelvic wall, in the midline. Stable appearance of a small, crescent shaped fluid collection at the hernia repair site, measuring 6 x 1 cm. This does not contain gas. No significant adjacent inflammatory changes seen. Stable appearance of significant diastasis of the rectus abdominis muscles, associated with anterior protrusion of multiple small bowel loops and part of the transverse colon. There is a small right-sided ventral hernia, containing small bowel loops, however, otherwise the abdominal wall musculature appears intact. VASCULATURE: No evidence of abdominal aortic aneurysm. No evidence of periaortic hemorrhage. LYMPH NODES: No evidence of diffuse lymphadenopathy. IMPRESSION: - No significant new findings compared to an 06/10/2017 CT. - Stable appearance of a 6 x 1 cm crescent-shaped fluid collection in the midline anterior pelvic wall soft tissues, and a prior hernia repair site. This most likely represents a chronic seroma, lymphocele, or resolving hematoma. - Stable appearance of significant diastasis of the rectus abdominis muscles, associated with anterior protrusion of multiple bowel loops. - See above for remaining findings. Dictated By: Bhavya Silva MD (Serina Ceballos) Radiology Orders: 08/05/17 00:31 ABD & PELVIS W/O PO OR IV CONT [CT] Stat - Medication Orders Current Medication Orders: Discontinued Medications Hydromorphone HCl (Dilaudid) 1 mg IVP STAT STA Stop: 08/05/17 00:32 Last Admin: 08/05/17 01:13 Dose: 1 mg HANNY Pain Assessment Document 08/05/17 01:13 OCS (Rec: 08/05/17 01:14 OCS [id number]) Pain Reassessment Is this a pain reassessment? Yes Sleep Is patient sleeping during reassessment? No Presence of Pain Presence of Pain Yes Pain Scale Used Pain Scale Used Numeric Location Pain Location Body Site Abdomen Description Description Constant Intensity of Pain at present 10 Aggravating Factors ADL's IVP Administration Document 08/05/17 01:13 OCS (Rec: 08/05/17 01:14 OCS [id number]) Charges for Administration # of IVP Administrations 1 Hydromorphone HCl (Dilaudid) 1 mg IVP STAT STA Stop: 08/05/17 03:13 - PA / STRATEGIC MANAGER / Resident Statement / has reviewed & agrees with the documentation as recorded. / has examined the patient and agrees with the treatment plan. <Saturnino Moss - Last Filed: 08/05/17 01:24> Disposition/Present on Arrival <Saturnino Moss - Last Filed: 08/05/17 01:24> - Present on Arrival Any Indicators Present on Arrival: No History of DVT/PE: No History of Uncontrolled Diabetes: No Urinary Catheter: No History of Decub. Ulcer: No History Surgical Site Infection Following: None - Disposition Have Diagnosis and Disposition been Completed?: Yes Disposition Time: 03:15 Patient Plan: Discharge <Serina Ceballos - Last Filed: 08/05/17 03:31> - Disposition Diagnosis: Abdominal hernia Disposition: HOME/ ROUTINE Condition: IMPROVED Discharge Instructions (ExitCare): Ventral Hernia (ED) Additional Instructions: Call private doctor for follow up visit in 1-[address] Lara Surgeon for further evaluation. Return to emergency if symptoms worsen. Referrals: Areli Lara MD [Staff Provider] - Follow up with primary Forms: [employer] (Uzbek), WORK NOTE
[2017-08-05] MEDS ORDERED: HYDROmorphone 0.5 mg/0.5 ml ISec IVP STA ×2 (00:31→03:12)
[2017-08-05] MEDS ORDERED: HYDROmorphone 2 mg/ml ISec ONE (01:00)
[2017-08-05 01:35] LABS: EOS # 0.1 (0.0-0.7); EOS % 0.7 % (1.5-5.0); GRAN # 5.48 (1.4-6.5); GRAN % 65.8 % (50.0-68.0); HEMOGLOBIN 14.4 g/dL (14.0-18.0); LYMPH # 2.3 (1.2-3.4); MEAN CELL VOLUME 90.6 fl (80.0-105.0); MEAN CORPUSCULAR HEMOGLOBIN 30.6 pg (25.0-35.0); MEAN CORPUSCULAR HGB CONC 33.8 g/dl (31.0-37.0); MONO # 0.5 (0.1-0.6); MONO % 5.5 % (1.0-6.0); RBC 4.7 10^6/uL (3.5-6.1); RED CELL DISTRIBUTION WIDTH 12.9 % (11.5-14.5); WHITE BLOOD COUNT 8.3 10^3/ul (4.5-11.0)
[2017-08-05 01:45] LABS: ALB/GLOB RATIO 1.3 (1.1-1.8); ALBUMIN 4.6 g/dL (3.0-4.8); ALT/SGPT 88 U/L (7-56); AST/SGOT 61 U/L (17-59); BLOOD UREA NITROGEN 13 mg/dL (7-21); CALCIUM 9.6 mg/dL (8.4-10.5); GFR AFRICAN-AMERICAN > 60; GFR NON-AFRICAN AMERICAN > 60; LIPASE 37 U/L (23-300)
--- NOTE | 2017-08-05 02:26 | CP.PCM.CON ---
History of Present Illness - History of Present Illness History of Present Illness: Surgery Consult Note. Dr. Lara 36yo M with PMHx of HTN, DM, Diverticulitis s/p sigmoidectomy, Ventral hernia repair with mesh here for evaluation of abdominal pain. Patient describes pain as waxing and waning, worse when standing or straining himself, improves when he lays down. He has a hx of diastasis recti and large ventral hernia repair with mesh. He does report similar symptoms in the past and has been following up with Dr. Lara as out-patient. He states that the only reason he is here is because he wanted some meds due to severe pain and to obtain CT scan so he can follow up with Dr. Lara. Last time he saw Dr. Lara, plan was for him to lose weight in order to have surgery be an option. He states that he has lost 30lbs with vegan diet. He again does not want to be admitted and would like to follow up with Dr. Lara as out-patient. He states that the Dilaudid he received did help his pain and is requesting more prior to leaving today. He denies any fevers, chills. No loss of appetite. No N/V/D. No CP/SOB. No Headaches. He is regularly passing gas and denies any change in bowel habits or bowel characteristics. PMHx: HTN, DM, Diverticulitis s/p sigmoidectomy PSHx: Sigmoidectomy with primary anastamosis 01/2016; Ventral Hernia repair with mesh 12/10 Social Hx: Admits to 1ppd smoker. Denies ETOH, Denies illicit drugs Review of Systems - Review of Systems All systems: reviewed and no additional remarkable complaints except - Constitutional Constitutional: absent: Anorexia, Chills, Fever - Cardiovascular Cardiovascular: absent: Chest Pain, Dyspnea - Respiratory Respiratory: absent: Cough, Dyspnea - Gastrointestinal Gastrointestinal: Abdominal Pain. absent: Constipation, Diarrhea, Hematemesis, Hematochezia, Nausea, Vomiting - Genitourinary Genitourinary: absent: Dysuria Past Patient History - Infectious Disease Hx of Infectious Diseases: None (Diverticulitis, sigmoid colon resection with anastomosis, ventral hernia repair (12/10/16)) - Tetanus Immunizations Tetanus Immunization: Unknown - Past Medical History & Family History Past Medical History?: Yes - Past Social History Smoking Status: Heavy Smoker > 10 Cigarettes Daily - CARDIAC Hx Cardiac Disorders: No - PULMONARY Hx Respiratory Disorders: No - NEUROLOGICAL Hx Neurological Disorder: No - HEENT Hx HEENT Problems: No - RENAL Hx Chronic Kidney Disease: No - ENDOCRINE/METABOLIC Hx Endocrine Disorders: No - HEMATOLOGICAL/ONCOLOGICAL Hx Blood Transfusions: No Hx Blood Transfusion Reaction: No - INTEGUMENTARY Hx Dermatological Problems: No - MUSCULOSKELETAL/RHEUMATOLOGICAL Hx Musculoskeletal Disorders: No Hx Falls: No - GASTROINTESTINAL Hx Gastrointestinal Disorders: Yes Hx Diverticulitis: Yes Other/Comment: incisional abscess, sigmoid colon resection january 2016 - GENITOURINARY/GYNECOLOGICAL Hx Genitourinary Disorders: No - PSYCHIATRIC Hx Psychophysiologic Disorder: No Hx Substance Use: No (DENIES) - SURGICAL HISTORY Hx Appendectomy: Yes Other/Comment: Sigmoid colon resection on 02/24/2016. incisional abscess multiple complications. Abd hernia mesh sx - ANESTHESIA Hx Anesthesia: Yes Hx Anesthesia Reactions: No Hx Malignant Hyperthermia: No Meds Allergies/Adverse Reactions: Allergies Allergy/AdvReac Type Severity Reaction Status Date / Time erythromycin base Allergy RASH Verified 08/05/17 00:06 Penicillins Allergy RASH Verified 08/05/17 00:06 venom-honey bee Allergy ANAPHYLAXIS Verified 08/05/17 00:06 [bee venom (honey bee)] Physical Exam - Constitutional Appears: Well, Non-toxic, No Acute Distress - Head Exam Head Exam: ATRAUMATIC, NORMAL INSPECTION, NORMOCEPHALIC - Eye Exam Eye Exam: EOMI - ENT Exam ENT Exam: Mucous Membranes Moist - Respiratory Exam Respiratory Exam: NORMAL BREATHING PATTERN. absent: Accessory Muscle Use, Respiratory Distress - GI/Abdominal Exam GI & Abdominal Exam: Soft Additional comments: large ventral midline incisional hernia. Reducible when laying flat. Distended but soft abdomen. Skin well healed. No Rebound, no guarding, no peritoneal signs. - Extremities Exam Extremities exam: Positive for: normal inspection. Negative for: calf tenderness - Neurological Exam Neurological exam: Alert, Normal Gait, Oriented x3 - Psychiatric Exam Psychiatric exam: Normal Affect, Normal Mood - Skin Skin Exam: Dry, Intact, Normal Color, Warm Results - Vital Signs Recent Vital Signs: Last Vital Signs Temp 98.6 F 08/04/17 23:59 Pulse 100 H 08/04/17 23:59 Resp 20 08/04/17 23:59 BP 132/88 08/04/17 23:59 Pulse Ox 97 08/04/17 23:59 - Labs Result Diagrams: 08/05/17 01:05 08/05/17 01:05 Labs: Laboratory Results - last 24 hr 08/05/17 08/05/17 01:05 01:05 WBC 8.3 RBC 4.70 Hgb 14.4 Hct 42.6 MCV 90.6 MCH 30.6 MCHC 33.8 RDW 12.9 Plt Count 253 MPV 9.0 Gran % 65.8 Lymph % (Auto) 28.0 [place] % (Auto) 5.5 Eos % (Auto) 0.7 L Baso % (Auto) 0.0 Gran # 5.48 Lymph # 2.3 [place] # 0.5 Eos # 0.1 Baso # 0.00 Sodium 140 Potassium 4.6 Chloride 98 Carbon Dioxide 31 Anion Gap 15 BUN 13 Creatinine 0.9 Est GFR ( Amer) > 60 Est GFR (Non-Af Amer) > 60 Random Glucose 109 Calcium 9.6 Total Bilirubin 0.6 AST 61 H D ALT 88 H Alkaline Phosphatase 68 Total Protein 8.2 Albumin 4.6 Globulin 3.6 Albumin/Globulin Ratio 1.3 Lipase 37 Assessment & Plan - Assessment and Plan (Free Text) Assessment: 36yo M with Diastasis Recti s/p ventral hernia repair with mesh - Patient wishes to go home and follow up with Dr. Lara in office. - f/u CT scan pending. Low clinical suspicion for incarcerated bowel or obstruction - Continue weight loss efforts - Return to the ER if symptoms persist or worsen Further recs as per Dr. Marco Gatica PGY1 surgery pager: [phone]
--- NOTE | 2017-08-05 03:09 | CT ---
EXAM: CT Abdomen and Pelvis Without Intravenous Contrast EXAM DATE/TIME: 08/05/2017 12:31 AM CLINICAL HISTORY: 36 years old, male; Pain; Abdominal pain; Generalized TECHNIQUE: Axial computed tomography images of the abdomen and pelvis without intravenous contrast. All CT scans at this facility use one or more dose reduction techniques, viz.: automated exposure control; ma/kV adjustment per patient size (including targeted exams where dose is matched to indication; i.e. head); or iterative reconstruction technique. Coronal and sagittal reformatted images were created and reviewed. COMPARISON: Prior CT of abdomen and pelvis of 2016-- FINDINGS: LOWER THORAX: No infiltrate seen in the lung bases. ABDOMEN: LIVER: Fatty infiltration of the liver. GALLBLADDER AND BILE DUCTS: No CT evidence of acute cholecystitis. No evidence of significant biliary ductal dilatation. PANCREAS: No CT evidence of acute pancreatitis. SPLEEN: No acute abnormality of the spleen identified. ADRENALS: 1.2 cm low-density left adrenal lesion, having a CT attenuation of less than 10 Hounsfield units on this noncontrast exam, most likely representing a benign adenoma. KIDNEYS AND URETERS: No acute abnormality of the kidneys seen. STOMACH AND BOWEL: See below. Colonic diverticulosis, with no evidence of acute diverticulitis. Surgical suture line/surgical anatomosis is noted in the sigmoid colon. Otherwise, no significant abnormality of the bowel is identified. No evidence of bowel obstruction. APPENDIX: Normal appendix is not seen, however, there are no significant inflammatory changes visualized in the expected location of the appendix to suggest appendicitis. Recommend clinical correlation. PELVIS: BLADDER: No acute abnormality of the bladder identified. REPRODUCTIVE: No acute abnormality of the reproductive organs is seen. ABDOMEN and PELVIS: INTRAPERITONEAL SPACE: No evidence of free intraperitoneal air or fluid. BONES/JOINTS: No acute fractures or other acute bony abnormality noted. SOFT TISSUES: Evidence of previous hernia repair in the anterior pelvic wall, in the midline. Stable appearance of a small, crescent shaped fluid collection at the hernia repair site, measuring 6 x 1 cm. This does not contain gas. No significant adjacent inflammatory changes seen. Stable appearance of significant diastasis of the rectus abdominis muscles, associated with anterior protrusion of multiple small bowel loops and part of the transverse colon. There is a small right-sided ventral hernia, containing small bowel loops, however, otherwise the abdominal wall musculature appears intact. VASCULATURE: No evidence of abdominal aortic aneurysm. No evidence of periaortic hemorrhage. LYMPH NODES: No evidence of diffuse lymphadenopathy. IMPRESSION: - No significant new findings compared to an 06/10/2017 CT. - Stable appearance of a 6 x 1 cm crescent-shaped fluid collection in the midline anterior pelvic wall soft tissues, and a prior hernia repair site. This most likely represents a chronic seroma, lymphocele, or resolving hematoma. - Stable appearance of significant diastasis of the rectus abdominis muscles, associated with anterior protrusion of multiple bowel loops. - See above for remaining findings.
== END 2017-08-05 03:36 | disposition home or self-care (01) ==
LOC: ED 22:09
DX: K46.9 Unspecified abdominal hernia without obstruction or gangrene (principal); E11.9 Type 2 diabetes mellitus without complications; I10 Essential (primary) hypertension; F17.210 Nicotine dependence, cigarettes, uncomplicated; Z88.0 Allergy status to penicillin
CPT/HCPCS: 74176; 80053; 83690; 85025; 96374; 96376; 99282; J1170